=== PATIENT | male | born 1955 | race Caucasian/White ===

== ENCOUNTER → 2018-09-05 | Outpatient (CLI) | payer BC ==
--- NOTE | 2018-09-05 09:12 | FL ---
EXAMINATION TYPE: FL barium swallow DATE OF EXAM: 09/05/2018 COMPARISON: None HISTORY: Mass on vocal cords, dysphasia TECHNIQUE: A double air contrast UGI study is performed. FINDINGS: Esophagus dilates to normal caliber has normal contour to the gastroesophageal junction. Gastroesopha geal junction opens to normal caliber. No intraluminal or extramural defects are evident. There is some hesitancy emptying of the distal esophagus which eventually does completely empty. A fe w tertiary contractions are evident. The horizontal drinking position there is incomplete stripping of the esophageal bolus. IMPRESSIONS: 1. Presbyesophagus. In the horizontal drinking position there is secondary contractions preventing pr opulsion of the esophageal bolus into the stomach. 2. Some hesitancy in the upright position emptying the distal esophagus during the exam. No stenosis is evident.
--- NOTE | 2018-09-05 10:12 | XR ---
EXAMINATION TYPE: XR chest 2V DATE OF EXAM: 09/05/2018 COMPARISON: Prior chest x-ray 04/14/2009 HISTORY: Dysphagia TECHNIQUE: Frontal and lateral views of the chest are obtained. FINDINGS: Patient is rotated towards the left, there may be spinal curvature. Aorta is dense. There is no focal air space opacity, pleural effusion, or pneumothorax seen. The cardiac silhouette size i s within normal limits. The osseous structures are intact. IMPRESSION: No acute cardiopulmonary process.
--- NOTE | 2018-09-05 11:00 | CT ---
EXAMINATION TYPE: CT soft tissue neck w con DATE OF EXAM: 09/05/2018 COMPARISON: None HISTORY: Epiglottic mass CT DLP: 744 mGycm CONTRAST: Patient injected with 100 mL of Isovue 300. TECHNIQUE: Axial images at 3 mm thick sections. Reconstructed images in the coronal plane and sagitt al plane are reviewed. FINDINGS: Limited CT sections are obtained the lung apices. The lung apices appear clear. CT neck: Beam hardening artifact from dental amalgam at the level of the mandible is present. The tor us tubarius and fossa of Rosenmuller are normal. 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 Paranasal sinuses an d mastoid air cells are clear. Parotid glands appear normal and symmetrical. Submandibular glands, are normal. Parapharyngeal spac es are normal. No suspicious adenopathy is evident. There is a 1.4 x 1.0 cm mass within the left posterior epiglottic region. Findings are suspicious for neoplasm. Vocal cord level appear symmetrical. False cords appear symmetrical. Vocal cords are in close approxi mation at the time of this examination causing some limitation. Consider a small abnormality along th e right vocal cord. Series 5 image 49 Thyroid as visualized is normal. Pneumatocele is in the anterior left upper lobe. Facet degenerative changes are present throughout the cervical spine. There is loss of disc height th rough the lower cervical spine. Some posterior endplate spurring is present C6-7. IMPRESSIONS: 1. 1.4 x 1.0 cm mass posterior left epiglottis. 2. Possible small mass incompletely delineated on the right vocal cord. 3. No suspicious adenopathy.
== END | disposition home or self-care (01) ==
LOC: RADCTMAIN 06:58
PROVIDERS: ATTEND Otolaryngology
DX: K22.8 Other specified diseases of esophagus (principal); R05 Cough; J38.7 Other diseases of larynx
CPT/HCPCS: 74220; 71046; 70491; Q9967

== ENCOUNTER → 2018-09-05 | Outpatient (CLI) | payer BC | END | disposition home or self-care (01) | LOC: RADUSWWP 06:57 | PROVIDERS: ATTEND Otolaryngology | DX: Z53.9 Procedure and treatment not carried out, unspecified reason (principal) ==

== ENCOUNTER → 2019-11-22 | Outpatient (CLI) | payer BC ==
--- NOTE | 2019-11-22 09:53 | CT ---
EXAMINATION TYPE: CT neck chest w con DATE OF EXAM: 11/22/2019 COMPARISON: CT neck September 05, 2018 HISTORY: Follow up to throat CA, dysphagia, radiation treatment for [address] DLP: 1128.5 mGycm. Automated Exposure Control for Dose Reduction was Utilized. TECHNIQUE: CT scan of the 9010 thorax are performed following with IV Contrast, patient injected wit h 100 mL of Isovue 300. FINDINGS: Neck: Airway: Better visualization of normal-appearing epiglottis on current study, suspect interval succes sful radiation treatment of prior mass or neoplasm. No residual mass identified at this level on curr ent study near axial image 60. Symmetric slightly more prominent thickening of the aryepiglottic fold s may reflect posttreatment change. There are similar symmetric ill-defined fluid and soft tissue ful lness of the piriform sinuses presumed posttreatment change given symmetric appearance. Parotid/submandibular glands: No gross abnormality seen. Carotid/Vascular Structures: Ceoq-bj-[id number] calcified plaque left greater than right carotid bulbs without significant stenosis. Codominant vertebrobasilar system. Osseous Structures: Dextroconvex scoliotic curvature. Straightening of cervical spine with moderate d isc space narrowing C6-C7 level and posterior spur disc complex redemonstrated. Other: Tiny mucous retention cysts or polyps in the inferior left maxillary sinus. Nasal septum devia christi to right of midline. No new greater than 1 cm neck adenopathy identified bilaterally. Chest: LUNGS: The lungs are grossly clear, there is no concerning parenchymal mass or nodule identified. T here is no pleural effusion or pneumothorax seen. There is no right eccentric 6 x 4 mm nodule axial i mage 16 and corresponding coronal image 42 series 8 corresponding to sagittal image 39 series 9. MEDIASTINUM: There are no greater than 1 cm hilar or mediastinal lymph nodes. No pericardial effusi on is seen. Moderate to severe three-vessel coronary artery calcification is present which is noted marked underlying coronary artery disease. There is cardiomegaly with moderate biatrial and biventric ular dilatation. Main pulmonary artery measures 3.2 cm diameter on image 31, CT findings consistent w ith underlying pulmonary hypertension.. Adjacent ascending aorta measures up to 4.0 cm axial image 31 . OTHER: Moderate multilevel anterior and lateral spurring in the spine. IMPRESSION: 1. Positive treatment response with nonvisualized epiglottis mass or neoplasm just left of midline. S uspected posttreatment change at this level as detailed above. No new suspicious mass or adenopathy i dentified. No acute pulmonary process is evident. There is however no right-sided 6 x 4 right trachea l nodule, not typical dependent location for retained secretions. Consider direct visualization.
== END | disposition home or self-care (01) ==
LOC: RADCTMAIN 08:05
PROVIDERS: ATTEND Otolaryngology
DX: R04.2 Hemoptysis (principal)
CPT/HCPCS: 70491; 71260; Q9967

== ENCOUNTER → 2021-02-20 | Outpatient (CLI) | payer BC, MEDICARE ==
--- NOTE | 2021-02-21 04:09 | MR ---
EXAMINATION TYPE: MR hip RT wo/w con DATE OF EXAM: 02/20/2021 COMPARISON: HISTORY: Right hip pain and limited movement for 6 months. Last COR & AX are VINITA. CONTRAST: Standard multiplanar, multisequence MRI departmental protocol images were obtained without contrast a nd with 8 mL intravenous Gadavist gadolinium contrast. There is metal artifact from left hip surgery. The bony pelvis appears intact. There is abnormal incr eased signal on the STIR images in the superior aspect of the right femoral head. There is also mild increased signal in the right acetabulum. There is severe narrowing of the right hip joint space. The re is no evidence of free fluid in the pelvis. Bladder distends smoothly. There is a mild right-sided hip joint effusion. The contrast images show no pathologic enhancement. 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 No significant collapse of the articular surface. Hip joint effusion.
== END | disposition home or self-care (01) ==
LOC: RADMRIMAIN 15:18
PROVIDERS: ATTEND Orthopaedic Surgery Adult Reconstructive Orthopaedic Surgery
DX: M25.551 Pain in right hip (principal)
CPT/HCPCS: 73723; A9585

== ENCOUNTER 2021-03-08 22:08 | Observation (INO) | payer MEDICARE ==
--- NOTE | 2021-03-08 23:32 | ED ---
SOB HPI - General Chief Complaint: Shortness of Breath Stated Complaint: Chest Pain, Shortness of Breath Time Seen by Provider: 03/08/21 23:09 Source: patient, EMS Mode of arrival: EMS Limitations: no limitations - History of Present Illness Initial Comments: This patient is a 65-year-old man who presents to be evaluated for exertional dyspnea. Patient states he started having symptoms about 3 days ago but it was very mild. Today things became severe. He states that if he walks over 10 feet he feels unable to catch his breath at all even with using his home oxygen. He is on home oxygen on an as-needed basis. Patient has history of diagnosis of laryngeal cancer in 2019. He had excision then but was found to have recurrence to his trachea in 2019. He had a tracheal resection and then there was found to be spread to the bronchi. The patient gets his cancer treatment through the [facility]. In addition patient has a cough but states that this is chronic. He has thin yellow sputum that he states is unchanged. There has been no chest pain. He has not noted fever or chills. No change in urination or bowel movements. No leg pain or swelling. MD Complaint: shortness of breath Onset/Timin -: days(s) Severity scale (1-10): 0 Consistency: constant Improves With: oxygen Worsens With: exertion Known History Of: other Associated Symptoms: cough, sputum production Treatments Prior to Arrival: oxygen - Related Data Home Oxygen Therapy: Yes (PRN) Home Medications Medication Instructions Recorded Confirmed Atorvastatin [Lipitor] 40 mg PO HS 09/14/13 03/09/21 Ascorbic Acid [Vitamin C] 1,000 mg PO DAILY 03/09/21 03/09/21 Elderberry Fruit and Flower [Black 1 cap PO DAILY 03/09/21 03/09/21 Elderberry 575 mg Cap] Fluconazole 200 mg PO DAILY 03/09/21 03/09/21 Insulin Glargine,Hum.rec.anlog 28 unit SQ DAILY 03/09/21 03/09/21 [Lantus Solostar Pen] Latanoprost/Pf [Latanoprost 0.005% 1 drop BOTH EYES HS 03/09/21 03/09/21 Eye Drop] Levothyroxine Sodium [Synthroid] 137 mcg PO DAILY 03/09/21 03/09/21 Metoprolol Succinate (ER) [Toprol 100 mg PO DAILY 03/09/21 03/09/21 XL] Multivitamins, Thera [Multivitamin 1 tab PO DAILY 03/09/21 03/09/21 (formulary)] Sulfamethox-Tmp 800-160Mg [Bactrim 1 tab PO BID 03/09/21 03/09/21 DS 800-160 mg] Zinc 50 mg PO DAILY 03/09/21 03/09/21 amLODIPine [Norvasc] 10 mg PO HS 03/09/21 03/09/21 Previous Rx's Medication Instructions Recorded Benzocaine/Menthol Lozeng [Cepacol 1 each MUCOUS MEM Q4HR PRN #20 03/10/21 lozenge] lozenge Budesonide/Formoterol Fumarate 1 puff IH BID 30 Days #10.2 gm 03/10/21 [Symbicort 160-4.5 Mcg Inhaler] Cefuroxime Axetil [Ceftin] 500 mg PO BID 4 Days #8 tab 03/10/21 Ipratropium-Albuterol Nebulize 3 ml INHALATION RT-Q4H PRN ml 03/10/21 [Duoneb 0.5 mg-3 mg/3 ml Soln] Ipratropium-Albuterol Nebulize 3 ml INHALATION RT-QID 30 Days #90 03/10/21 [Duoneb 0.5 mg-3 mg/3 ml Soln] ml Pantoprazole [Protonix] 40 mg PO AC-BRKFST 30 Days #30 tab 03/10/21 predniSONE 10 mg PO DIRECTED #30 tab 03/10/21 Allergies Allergy/AdvReac Type Severity Reaction Status Date / Time No Known Allergies Allergy Verified 03/09/21 12:14 Review of Systems ROS Statement: Those systems with pertinent positive or pertinent negative responses have been documented in the HPI. ROS Other: All systems not noted in ROS Statement are negative. Constitutional: Denies: fever, chills, weakness Respiratory: Reports: cough, wheezes. Denies: dyspnea, hemoptysis, stridor Cardiovascular: Reports: as per HPI, dyspnea on exertion. Denies: chest pain, palpitations, orthopnea, edema, syncope Gastrointestinal: Denies: abdominal pain, vomiting, diarrhea Genitourinary: Denies: dysuria, hematuria Musculoskeletal: Denies: back pain Skin: Denies: rash Neurological: Denies: headache, weakness Past Medical History Past Medical History: Cancer, GERD/Reflux, Hypertension, Sleep Apnea/CPAP/BIPAP Additional Past Medical History / Comment(s): edema-both feet, trachial cancer, bronchial cancer History of Any Multi-Drug Resistant Organisms: None Reported Past Surgical History: Orthopedic Surgery Additional Past Surgical History / Comment(s): arthroscopic-dillon knees, rt shoulder, nasal/sinus surgery, trachial removal and insertion of a "t-tube" trac h. Past Anesthesia/Blood Transfusion Reactions: No Reported Reaction Past Psychological History: No Psychological Hx Reported Smoking Status: Former smoker Past Alcohol Use History: Occasional Past Drug Use History: None Reported - Past Family History Sister(s) Family Medical History: Cancer General Exam Limitations: no limitations General appearance: alert, in no apparent distress Head exam: Present: atraumatic, normocephalic Eye exam: Present: normal appearance. Absent: scleral icterus, conjunctival injection ENT exam: Present: normal oropharynx Neck exam: Present: other (The patient has a tracheostomy which is currently capped. There is some erythema surrounding the tracheostomy which appears to be postradiation change. Small amount of fibrinous exudate.) Respiratory exam: Present: wheezes, stridor. Absent: respiratory distress, rales, rhonchi, accessory muscle use, decreased breath sounds, prolonged expiratory Cardiovascular Exam: Present: regular rate, normal rhythm, normal heart sounds. Absent: systolic murmur, diastolic murmur, rubs, gallop GI/Abdominal exam: Present: soft. Absent: distended, tenderness, guarding, rebound, rigid, mass Extremities exam: Present: normal inspection, normal capillary refill. Absent: pedal edema, calf tenderness Back exam: Present: normal inspection Neurological exam: Present: alert Skin exam: Present: warm, dry, intact, normal color. Absent: rash Course Vital Signs 03/08/21 03/08/21 03/09/21 22:11 22:23 01:51 Temperature 99.1 F Pulse Rate 101 H 88 Respiratory 20 20 Rate Blood Pressure 140/107 O2 Sat by Pulse 98 Oximetry 03/09/21 03/09/21 03/09/21 02:09 02:57 05:47 Temperature 98.3 F Pulse Rate 88 90 83 Respiratory 22 20 Rate Blood Pressure 150/85 137/79 O2 Sat by Pulse 96 99 Oximetry Medical Decision Making - Lab Data Result diagrams: 03/10/21 05:19 03/10/21 05:19 Lab Results 03/09/21 03/09/21 03/09/21 Range/Units 00:16 00:16 00:16 WBC 10.5 (3.8-10.6) k/uL RBC 4.51 (4.30-5.90) m/uL Hgb 13.7 (13.0-17.5) gm/dL Hct 41.4 (39.0-53.0) % MCV 91.7 (80.0-100.0) fL MCH 30.4 (25.0-35.0) pg MCHC 33.2 (31.0-37.0) g/dL RDW 17.7 H (11.5-15.5) % Plt Count 190 (150-450) k/uL MPV 6.7 Neutrophils % 90 % Lymphocytes % 3 % Monocytes % 6 % Eosinophils % 0 % Basophils % 0 % Neutrophils # 9.4 H (1.3-7.7) k/uL Lymphocytes # 0.3 L (1.0-4.8) k/uL Monocytes # 0.6 (0-1.0) k/uL Eosinophils # 0.0 (0-0.7) k/uL Basophils # 0.0 (0-0.2) k/uL Poikilocytosis Slight Anisocytosis Slight PT 10.7 (9.0-12.0) sec INR 1.0 (<1.2) APTT 20.4 L (22.0-30.0) sec D-Dimer 1.06 H (<0.60) mg/L FEU Sodium 136 L (137-145) mmol/L Potassium 4.4 (3.5-5.1) mmol/L Chloride 103 (98-107) mmol/L Carbon Dioxide 21 L (22-30) mmol/L Anion Gap 12 mmol/L BUN 18 (9-20) mg/dL Creatinine 0.76 (0.66-1.25) mg/dL Est GFR (CKD-EPI)AfAm >90 (>60 ml/min/1.73 sqM) Est GFR (CKD-EPI)NonAf >90 (>60 ml/min/1.73 sqM) Glucose 206 H (74-99) mg/dL Plasma Lactic Acid Billy (0.7-2.0) mmol/L Calcium 9.6 (8.4-10.2) mg/dL Total Bilirubin 0.7 (0.2-1.3) mg/dL AST 25 (17-59) U/L ALT 17 (4-49) U/L Alkaline Phosphatase 105 (38-126) U/L Troponin I (0.000-0.034) ng/mL NT-Pro-B Natriuret Pep pg/mL Total Protein 6.6 (6.3-8.2) g/dL Albumin 3.9 (3.5-5.0) g/dL Coronavirus (PCR) (Not Detectd) 03/09/21 03/09/21 03/09/21 Range/Units 00:16 00:16 00:16 WBC (3.8-10.6) k/uL RBC (4.30-5.90) m/uL Hgb (13.0-17.5) gm/dL Hct (39.0-53.0) % MCV (80.0-100.0) fL MCH (25.0-35.0) pg MCHC (31.0-37.0) g/dL RDW (11.5-15.5) % Plt Count (150-450) k/uL MPV Neutrophils % % Lymphocytes % % Monocytes % % Eosinophils % % Basophils % % Neutrophils # (1.3-7.7) k/uL Lymphocytes # (1.0-4.8) k/uL Monocytes # (0-1.0) k/uL Eosinophils # (0-0.7) k/uL Basophils # (0-0.2) k/uL Poikilocytosis Anisocytosis PT (9.0-12.0) sec INR (<1.2) APTT (22.0-30.0) sec D-Dimer (<0.60) mg/L FEU Sodium (137-145) mmol/L Potassium (3.5-5.1) mmol/L Chloride (98-107) mmol/L Carbon Dioxide (22-30) mmol/L Anion Gap mmol/L BUN (9-20) mg/dL Creatinine (0.66-1.25) mg/dL Est GFR (CKD-EPI)AfAm (>60 ml/min/1.73 sqM) Est GFR (CKD-EPI)NonAf (>60 ml/min/1.73 sqM) Glucose (74-99) mg/dL Plasma Lactic Acid Billy 1.2 (0.7-2.0) mmol/L Calcium (8.4-10.2) mg/dL Total Bilirubin (0.2-1.3) mg/dL AST (17-59) U/L ALT (4-49) U/L Alkaline Phosphatase (38-126) U/L Troponin I 0.014 (0.000-0.034) ng/mL NT-Pro-B Natriuret Pep 579 pg/mL Total Protein (6.3-8.2) g/dL Albumin (3.5-5.0) g/dL Coronavirus (PCR) (Not Detectd) 03/09/21 Range/Units 00:16 WBC (3.8-10.6) k/uL RBC (4.30-5.90) m/uL Hgb (13.0-17.5) gm/dL Hct (39.0-53.0) % MCV (80.0-100.0) fL MCH (25.0-35.0) pg MCHC (31.0-37.0) g/dL RDW (11.5-15.5) % Plt Count (150-450) k/uL MPV Neutrophils % % Lymphocytes % % Monocytes % % Eosinophils % % Basophils % % Neutrophils # (1.3-7.7) k/uL Lymphocytes # (1.0-4.8) k/uL Monocytes # (0-1.0) k/uL Eosinophils # (0-0.7) k/uL Basophils # (0-0.2) k/uL Poikilocytosis Anisocytosis PT (9.0-12.0) sec INR (<1.2) APTT (22.0-30.0) sec D-Dimer (<0.60) mg/L FEU Sodium (137-145) mmol/L Potassium (3.5-5.1) mmol/L Chloride (98-107) mmol/L Carbon Dioxide (22-30) mmol/L Anion Gap mmol/L BUN (9-20) mg/dL Creatinine (0.66-1.25) mg/dL Est GFR (CKD-EPI)AfAm (>60 ml/min/1.73 sqM) Est GFR (CKD-EPI)NonAf (>60 ml/min/1.73 sqM) Glucose (74-99) mg/dL Plasma Lactic Acid Billy (0.7-2.0) mmol/L Calcium (8.4-10.2) mg/dL Total Bilirubin (0.2-1.3) mg/dL AST (17-59) U/L ALT (4-49) U/L Alkaline Phosphatase (38-126) U/L Troponin I (0.000-0.034) ng/mL NT-Pro-B Natriuret Pep pg/mL Total Protein (6.3-8.2) g/dL Albumin (3.5-5.0) g/dL Coronavirus (PCR) Not Detected (Not Detectd) - EKG Data -: EKG Interpreted by Me EKG shows normal: sinus rhythm, axis (Normal), intervals (Normal), QRS complexes (Normal), ST-T waves (Normal) Rate: normal (Rate 86 bpm) Disposition Clinical Impression: Tracheobronchitis, COPD with exacerbation Disposition: ADMITTED IP TO THIS [facility] Condition: Stable Is patient prescribed a controlled substance at d/c from ED?: No
--- NOTE | 2021-03-09 00:10 | XR ---
EXAMINATION TYPE: XR chest 2V DATE OF EXAM: 03/08/2021 COMPARISON: 09/05/2018 HISTORY: Difficulty breathing TECHNIQUE: FINDINGS: There is no heart failure or confluent pneumonic infiltrate. There are sternal wires. Costo phrenic angles are clear. There are chest leads. Bony thorax is intact. IMPRESSION: No active cardiopulmonary disease. Normal heart. No change.
[2021-03-09 00:39] LABS: Anisocytosis Slight; Basophils % (A) 0 %; Eosinophils % (A) 0 %; HCT 41.4 % (39.0-53.0); HGB 13.7 gm/dL (13.0-17.5); Lymphocytes # (A) 0.3 k/uL (1.0-4.8); Lymphocytes % (A) 3 %; MCH 30.4 pg (25.0-35.0); MCHC 33.2 g/dL (31.0-37.0); MCV 91.7 fL (80.0-100.0); Mean Platelet Volume 6.7; Monocytes # (A) 0.6 k/uL (0-1.0); Monocytes % (A) 6 %; Neutrophils # (A) 9.4 k/uL (1.3-7.7); Neutrophils % (A) 90 %; Platelet Count 190 k/uL (150-450); Poikilocytosis Slight; RBC 4.51 m/uL (4.30-5.90); RDW 17.7 % (11.5-15.5); WBC 10.5 k/uL (3.8-10.6)
[2021-03-09 00:49] LABS: ALT 17 U/L (4-49); AST 25 U/L (17-59); African American GFR (CKD) >90 (>60 ml/min/1.73 sqM); Albumin 3.9 g/dL (3.5-5.0); Alkaline Phosphatase 105 U/L (38-126); Anion Gap 12 mmol/L; Blood Urea Nitrogen 18 mg/dL (9-20); Calcium 9.6 mg/dL (8.4-10.2); Carbon Dioxide 21 mmol/L (22-30); Chloride 103 mmol/L (98-107); Glucose 206 mg/dL (74-99); Non-African American GFR(CKD) >90 (>60 ml/min/1.73 sqM); Potassium 4.4 mmol/L (3.5-5.1); Sodium 136 mmol/L (137-145); Total Bilirubin 0.7 mg/dL (0.2-1.3); Total Protein 6.6 g/dL (6.3-8.2)
[2021-03-09 00:58] LABS: Prothrombin Time 10.7 sec (9.0-12.0)
[2021-03-09 01:08] LABS: Partial Thromboplastin Time 20.4 sec (22.0-30.0)
[2021-03-09] MEDS ORDERED: IPRATROPIUM-ALBUTEROL 3 ML NEB INHALATION STA (01:34)
--- NOTE | 2021-03-09 02:40 | CT ---
EXAMINATION TYPE: CT chest angio for PE DATE OF EXAM: 03/09/2021 COMPARISON: 11/22/2019 HISTORY: elevated d-dimer CT DLP: 361.5 mGycm Automated exposure control for dose reduction was used. CONTRAST: Performed with IV Contrast, patient injected with 50 mL of Isovue 370. Images obtained from the thoracic inlet to the diaphragm with IV contrast. There are Three-D postproc essed images. The contrast was Isovue 50 mL. FINDINGS: There is tracheostomy tube noted. There is irregular contour of the wall of the lower trachea and the proximal mainstem bronchi. There are small linear density in the medial left lower lobe. There is no pleural effusion. There is no evidence of a pulmonary mass. There is no adrenal mass. There is probably a small calcified gallst ones. Heart size is normal. There is no pericardial effusion. There is normal contrast opacification of the pulmonary arteries. There are no filling defects. There is mild aneurysm of the ascending aorta whic h measures 4 cm. There is no dissection. The thoracic spine is intact. There is no compression fracture. Sternum is intact. There are sternal wires. IMPRESSION: No evidence of pulmonary embolism. Irregular trachea with tracheostomy tube. Irregular wall thickening of the lower trachea and the pro ximal mainstem bronchi could relate to tumor or inflammation. This appears significantly increased co mpared to the CT SCAN of 11/22/2019. 4 cm thoracic aortic aneurysm without change.
[2021-03-09] MEDS ORDERED: IPRATROPIUM-ALBUTEROL 3 ML NEB INHALATION PRN (02:55)
[2021-03-09] MEDS ORDERED: IBUPROFEN 600 MG TAB PO STA (06:02)
[2021-03-09] MEDS: SODIUM CHLORIDE 0.9% 1,000 ML IV SCH ×2 (07:06→14:13)
[2021-03-09] MEDS ORDERED: predniSONE 20 MG TAB PO SCH (09:00)
[2021-03-09] MEDS: ALBUTEROL NEBULIZED 2.5 MG/3 ML INHALATION SCH ×2 (09:13→12:07)
[2021-03-09] MEDS ORDERED: ALPRAZolam 0.25 MG TAB PO PRN (13:15)
[2021-03-09] MEDS: methylPREDNISolone SOD SUCCI 125 MG/2 ML VIAL IV SCH ×2 (13:59→17:02)
[2021-03-09] MEDS: FLUCONAZOLE 100 MG TAB PO SCH (14:01)
[2021-03-09] MEDS: PANTOPRAZOLE 40 MG TABLET PO SCH (14:01)
[2021-03-09] MEDS: METOPROLOL SUCCINATE (ER) 100 MG TAB.ER.24H PO SCH (14:02)
[2021-03-09] MEDS: LEVOTHYROXINE 137 MCG TAB PO SCH ×2 (14:02→14:03)
--- NOTE | 2021-03-09 14:22 | HP ---
HISTORY AND PHYSICAL DATE OF SERVICE: 03/09/2021. CHIEF COMPLAINT: Shortness of breath. HISTORY OF PRESENT ILLNESS: This 65-year-old gentleman with a past history of GERD, hypertension, sleep apnea, history of skin cancer, history of bronchial cancer, [facility], chemo, history of hernia, history of DJD being followed by Dr. San in the outpatient setting complaining of shortness of breath. The patient usually takes a breathing treatment to get relief. Yesterday, the patient did not have any relief. The patient came to [facility] and admitted to the hospital further evaluation and treatment. The chest x-ray showed some COPD. CT angio chest was also done to rule out pulmonary embolism. The patient had diffuse thickening and abnormalities of the lower lobes. Otherwise, there is no history of any fever, rigor or chills at this time. PAST MEDICAL HISTORY: History of GERD, hypertension, sleep apnea, history of tracheobronchial cancer on chemo, history of DJD. MEDICATIONS: Medications prior to admission include: Latanoprost, Norvasc, multivitamins, zinc, Elderberry, ascorbic acid, Bactrim DS, Synthroid. Doses and other medications reviewed. ALLERGIES: None. FAMILY HISTORY: No history of cancer in the family. SOCIAL HISTORY: Previous history of smoking. No history of alcohol. REVIEW OF SYSTEMS: ENT: No diminished vision. No diminished hearing. CARDIOVASCULAR system as mentioned earlier. RESPIRATORY: As mentioned earlier. GI: As mentioned earlier. no dysuria. NERVOUS SYSTEM: No numbness or weakness. ALLERGY/IMMUNOLOGY: No asthma or hayfever. MUSCULOSKELETAL: As mentioned earlier. HEMATOLOGY/ONCOLOGY: No history of anemia. ENDOCRINE: No history of diabetes mellitus or hypothyroidism. CONSTITUTIONAL: As mentioned earlier. DERMATOLOGY: Negative. RHEUMATOLOGY: Negative. PSYCHIATRIC: As mentioned earlier. PHYSICAL EXAMINATION: Alert and oriented times three. Pulse 71, blood pressure 125/76, respirations 16, temperature 97.6, pulse ox 98% on 4 L. HEENT: Conjunctivae normal. NECK: No JVD. CARDIOVASCULAR: S1, S2 muffled. RESPIRATORY: Breath sounds diminished in the bases. A few scattered rhonchi and crackles. Expiratory wheezing also present. ABDOMEN: Soft, nontender. No mass palpable. LEGS: No edema. No swelling. NERVOUS SYSTEM: Higher functions as mentioned earlier. Moves all 4 limbs. No focal motor or sensory deficits. LYMPHATICS: No lymph nodes palpable in the neck, axillae or groin. SKIN: No ulcer, no rash and no bleeding. LABS: Chest x-ray and CT angio personally reviewed. WBC 10.7, D-dimer 1.64 and sodium is 136. Covid 19 is negative. ASSESSMENT: 1. Chronic obstructive pulmonary disease acute exacerbation with acute purulent tracheobronchitis with failure of outpatient treatment with acute hypoxic respiratory failure. 2. Hyponatremia. 3. 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 4. History of gastroesophageal reflux disease. 5. Hypertension. 6. Sleep apnea. 7. History of tracheobronchial cancer being followed at [facility]. 8. History of hernia. 9. History of degenerative joint disease. 10.Remote history of nicotine dependence. 11.FULL CODE. RECOMMENDATIONS AND DISCUSSION: This 65-year-old gentleman who presented with multiple complex medications. We will monitor the patient closely, continue the current medications, symptomatic treatment. We will initiate broad-spectrum IV antibiotics. Otherwise I would also recommend intensive bronchodilators. Pulmonary consultation. Home medications will be continued. DVT prophylaxis. Otherwise, I would also recommend intravenous steroids and monitor Accu-Cheks also. See orders for details. Prognosis is extremely guarded because of multiple complex medical issues. Further recommendations to follow. A copy of this dictation is being forwarded to Dr. San who is the primary physician. MANDI / GISSEL: [id number] /
[2021-03-09] MEDS: INSULIN DETEMIR (LEVEMIR) 100 UNIT/ML SYR SQ SCH (14:28)
[2021-03-09] MEDS: FORMOTEROL FUMARATE 20 MCG/2 ML NEBU INHALATION SCH ×2 (15:46→21:00)
[2021-03-09] MEDS: IPRATROPIUM-ALBUTEROL 3 ML NEB INHALATION SCH ×2 (15:46→21:00)
[2021-03-09] MEDS: BUDESONIDE 1 MG/2 ML NEBU INHALATION SCH ×2 (15:46→21:00)
[2021-03-09 16:39] LABS: Glucose,Whole Blood 216 mg/dL (75-99)
--- NOTE | 2021-03-09 16:44 | P.CNPUL ---
History of Present Illness Consult date: 03/09/21 Reason for consult: dyspnea History of present illness: 65-year-old male patient presented to the hospital because of exertional dyspnea progressively getting worse over the past several days. His symptoms progressively got worse and for that reason he came into the ED. Unable to catch his breath and he was using his home O2. He is known to have laryngeal cancer in 2019. This is a very interesting and in summary, the patient was initially diagnosed having what seems to be of a papillomatosis/cancer of the epiglottis/vocal cord. At that point, the patient was treated with radiation therapy to [facility] of 7 sessions. Following that, the patient was found to have extensive involvement of the trachea. The patient went [facility] and the patient underwent tracheal resection which was an extensive surgery. He underwent tracheal reconstruction with a muscle flap and the patient has a plastic tracheostomy tube extending from his neck down to the mid chest. Following that, the patient was started on immunotherapy and the patient was given Keytruda and he has already received 2 sessions of immunothe rapy. He is being followed up by . Most recently, he was found to have further endobronchial extension of the tumor into the airways when he was being planned to undergo further resection. Meanwhile, the patient gets admitted to the hospital. The patient denies having any fever. No significant sputum production. Currently is on room air oxygen. He has bronchospastic and wheezy. Is a nonsmoker. He has not had a significant history of smoking in the past. No reported history of COPD. He was told that bronchodilators in general will not take his help his condition. No reported chest pain. No fever or chills. He came into the emergency department and the patient was initially found to have a temperature of 99.1. BP was slightly elevated 140 05/23/2006. Pulse ox was 98% on room air oxygen. White cell count was at 10.5 with a hemoglobin of 13.7 and a platelet count of 190. Normal renal function with a creatinine of 0.7, sodium was at 136, normal coagulation profile, d-dimer was at 1.06, glucose was at 206, calcium was at 9.6, the patient's troponin was at 0.01, proBNP level was 579, lactic acid level was at 1.2 and the patient tested negative for COVID 19 by PCR. The EKG showed a normal sinus rhythm. The chest x-ray showed no acute abnormalities. CT of the chest was also done and it showed no evidence of any pulmonary embolism. The patient has a tracheostomy tube in place. No evidence of any pleural effusion. Nevertheless, based on my review, CAT scan of the chest is markedly abnormal. There is an extensive endobronchial irregularities or abnormalities and tumor growth in the main maximo and also similar abnormalities are noted in the proximal mainstem bronchi bilaterally causing anatomic obstruction. No evidence of any pneumonia. Note the 70 collap se lung. No evidence of any pleural effusion. No significant mediastinal lymphadenopathy. There was found incidentally to have small calcified gallstones. The patient is currently on room air of oxygen pulse ox 97%. Hemodynamically stable. Blood pressure is also improved. Review of Systems Constitutional: Reports as per HPI Eyes: denies as per HPI, denies blurred vision, denies bulging eye, denies decreased vision, denies diplopia, denies discharge, denies dry eye, denies irritation, denies itching, denies pain, denies photophobia, denies loss of peripheral vision, denies loss of vision, denies tunnel vision/blind spots Ears: deny: decreased hearing, ear discharge, earache, tinnitus Ears, nose, mouth and throat: Reports as per HPI Breasts: absent: as per HPI, gynecomastia Cardiovascular: Reports dyspnea on exertion Respiratory: Reports cough, Reports dyspnea Gastrointestinal: Reports as per HPI Genitourinary: Reports as per HPI Musculoskeletal: Reports as per HPI Musculoskeletal: absent: ankle pain, ankle stiffness, ankle swelling, as per HPI, elbow pain, elbow stiffness, elbow swelling, foot pain, foot stiffness, foot swelling, hand pain, hand stiffness, hand swelling, hip pain, hip s tiffness, hip swelling, knee pain, knee stiffness, knee swelling, shoulder pain, shoulder stiffness, shoulder swelling, wrist pain, wrist stiffness, wrist swelling Integumentary: Reports as per HPI Neurological: Reports as per HPI Psychiatric: Reports as per HPI Endocrine: Reports as per HPI Hematologic/Lymphatic: Reports as per HPI Allergic/Immunologic: Reports as per HPI Past Medical History Past Medical History: Cancer (Laryngeal cancer), GERD/Reflux, Hypertension, Sleep Apnea/CPAP/BIPAP Additional Past Medical History / Comment(s): edema-both feet, trachial cancer, bronchial cancer 2019 going to [facility] for treatment with chemo, january 23 2021 pt tested positive at [facility], hernia to right side groin/abdomen History of Any Multi-Drug Resistant Organisms: None Reported Past Surgical History: Orthopedic Surgery Additional Past Surgical History / Comment(s): arthroscopic-dillon knees, rt shoulder, nasal/sinus surgery, trachial removal and insertion of a "t-tube" trach mar 2019 Past Anesthesia/Blood Transfusion Reactions: No Reported Reaction Past Psychological History: No Psychological Hx Reported Smoking Status: Former smoker Past Alcohol Use History: Occasional Past Drug Use History: None Reported - Past Family History Sister(s) Family Medical History: Cancer Medications and Allergies Home Medications Medication Instructions Recorded Confirmed Type Atorvastatin [Lipitor] 40 mg PO HS 09/14/13 03/09/21 History Ascorbic Acid [Vitamin C] 1,000 mg PO DAILY 03/09/21 03/09/21 History Elderberry Fruit and Flower [Black 1 cap PO DAILY 03/09/21 03/09/21 History Elderberry 575 mg Cap] Fluconazole 200 mg PO DAILY 03/09/21 03/09/21 History Insulin Glargine,Hum.rec.anlog 28 unit SQ DAILY 03/09/21 03/09/21 History [Lantus Solostar Pen] Latanoprost/Pf [Latanoprost 0.005% 1 drop BOTH EYES HS 03/09/21 03/09/21 History Eye Drop] Levothyroxine Sodium [Synthroid] 137 mcg PO DAILY 03/09/21 03/09/21 History Metoprolol Succinate (ER) [Toprol 100 mg PO DAILY 03/09/21 03/09/21 History Xl] Multivitamins, Thera [Multivitamin 1 tab PO DAILY 03/09/21 03/09/21 History (formulary)] Sulfamethox-Tmp 800-160Mg [Bactrim 1 tab PO BID 03/09/21 03/09/21 History DS 800-160 mg] Zinc 50 mg PO DAILY 03/09/21 03/09/21 History amLODIPine [Norvasc] 10 mg PO HS 03/09/21 03/09/21 History Allergies Allergy/AdvReac Type Severity Reaction Status Date / Time No Known Allergies Allergy Verified 03/09/21 12:14 Physical Exam Vitals: Vital Signs Temp Pulse Pulse Resp BP BP Pulse Ox 03/09/21 14:00 98.4 F 93 16 121/78 97 03/09/21 09:31 82 03/09/21 09:15 80 03/09/21 08:00 97.6 F 71 16 125/76 98 03/09/21 05:47 98.3 F 83 20 137/79 99 03/09/21 02:57 90 22 150/85 96 03/09/21 02:09 88 03/09/21 01:51 88 03/08/21 22:23 20 03/08/21 22:11 99.1 F 101 H 20 140/107 98 Intake and Output 03/09/21 03/09/21 03/09/21 06:59 14:59 22:59 Intake Total 472 Balance 472 Intake: Oral 472 Other: Weight 79.379 kg General appearance: alert, in no apparent distress, currently on 4 L nasal cannu la. Head exam: Present: atraumatic, normocephalic, normal inspection Eye exam: Present: normal appearance, EOMI Neck exam: Present: normal inspection. The patient is a tracheostomy in place. Respiratory exam: Absent: respiratory distress Extremities exam: Present: normal inspection, full ROM, tenderness, normal capillary refill. Absent: pedal edema, joint swelling, calf tenderness Neurological exam: Present: alert, oriented X3, CN II-XII intact. Absent: motor sensory deficit Psychiatric exam: Present: normal affect, normal mood Skin exam: Present: warm, dry, intact, normal color. Absent: rash Results - Laboratory Findings CBC and BMP: 03/09/21 00:16 03/09/21 00:16 PT/INR, D-dimer PT 10.7 sec (9.0-12.0) 03/09/21 00:16 INR 1.0 (<1.2) 03/09/21 00:16 D-Dimer 1.06 mg/L FEU (<0.60) H 03/09/21 00:16 Abnormal lab findings: Abnormal Labs 03/09/21 03/09/21 03/09/21 00:16 00:16 00:16 RDW 17.7 H Neutrophils # 9.4 H Lymphocytes # 0.3 L APTT 20.4 L D-Dimer 1.06 H Sodium 136 L Carbon Dioxide 21 L Glucose 206 H - Diagnostic Findings Chest x-ray: image reviewed CT scan - chest: image reviewed Assessment and Plan Plan: 1 shortness of breath, multifactorial. 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 All of his investigation was not at [facility]. The patient undergone surgical resection and construction and therefore now the patient has endobronchial growth causing an anatomic obstruction the level of the trachea distally, maximo and bilateral mainstem bronchi. As such, the patient is becoming progressively more short of breath. Computed tomography scan of the chest shows no evidence of any pulmonary embolism. No evidence of pneumonias. He is bronchospastic and wheezy which could be related to narrowing of the airways rather than a clear underlying obstructive airway disease. The patient is currently on room air oxygen. His tracheostomy is patent at this point in time. 2 acute on chronic worsening shortness of breath 3 history of laryngeal/tracheal tumor. Initially the patient started off with radiation therapy to his cords and epiglottis and subsequently the tumor extended into his trachea. The patient has undergone taken resection followed by immunotherapy with Keytruda. 4 hypothyroidism 5 diabetes mellitus 6 hypertension Plan Unfortunately not much can be offered to this patient. Breathing treatments and bronchodilators may not be of much value knowing that the patient obstruction is anatomic and he does not have any reversible smaller airway disease. This will be continued for now to give him the benefit of the doubt. He was also placed on steroids. He is on empiric antibiotic coverage. He needs to go back to [facility] for further investigation. He needs to have a bronchoscopy to his ENT physician for further evaluation and the assessment of his airway and he may need to undergo further debulking to open and improve the patency of the airway. Immunotherapy may be also value. He will contact his ENT services at [facility] to monitor. Unfortunately, our ability to help this patient is limited at this point in time. We'll continue to follow. He understands the current situation.
[2021-03-09] MEDS: INSULIN ASPART (NovoLOG) 100 UNIT/ML VIAL SQ SCH ×2 (17:02→21:53)
[2021-03-09] MEDS ORDERED: LATANOPROST 0.005% OPHTH DROPS 2.5 ML BTL BOTH EYES SCH (21:00)
[2021-03-09 21:15] LABS: Glucose,Whole Blood 215 mg/dL (75-99)
[2021-03-09] MEDS: HEPARIN SODIUM,PORCINE/PF 5,000 UNIT/0.5 ML SYRINGE SQ SCH (21:54)
[2021-03-09] MEDS ORDERED: VANCOMYCIN IV PER PHARMACY 1 EACH MISC MISCELLANE PRN (22:52)
[2021-03-09] MEDS ORDERED: VANCOMYCIN 1,500 MG in SODIUM CHLORIDE 0.9% 250 ML IVPB ONE (23:00)
[2021-03-10] MEDS: methylPREDNISolone SOD SUCCI 125 MG/2 ML VIAL IV SCH ×3 (00:09→12:22)
[2021-03-10] MEDS: LEVOTHYROXINE 137 MCG TAB PO SCH (05:07)
[2021-03-10 07:41] LABS: Glucose,Whole Blood 201 mg/dL (75-99)
[2021-03-10] MEDS: INSULIN DETEMIR (LEVEMIR) 100 UNIT/ML SYR SQ SCH (07:59)
[2021-03-10] MEDS: INSULIN ASPART (NovoLOG) 100 UNIT/ML VIAL SQ SCH ×2 (07:59→12:22)
[2021-03-10] MEDS: HEPARIN SODIUM,PORCINE/PF 5,000 UNIT/0.5 ML SYRINGE SQ SCH (08:01)
[2021-03-10] MEDS: FLUCONAZOLE 100 MG TAB PO SCH (08:01)
[2021-03-10] MEDS: PANTOPRAZOLE 40 MG TABLET PO SCH (08:01)
[2021-03-10] MEDS: METOPROLOL SUCCINATE (ER) 100 MG TAB.ER.24H PO SCH (08:01)
[2021-03-10] MEDS: BUDESONIDE 1 MG/2 ML NEBU INHALATION SCH (08:04)
[2021-03-10] MEDS: IPRATROPIUM-ALBUTEROL 3 ML NEB INHALATION SCH ×3 (08:04→16:56)
[2021-03-10] MEDS: FORMOTEROL FUMARATE 20 MCG/2 ML NEBU INHALATION SCH (08:04)
[2021-03-10 08:57] LABS: Basophils # (A) 0.01 X 10*3/uL (0.00-0.10); Basophils % (A) 0.1 %; Eosinophils # (A) 0 X 10*3/uL (0.04-0.35); Eosinophils % (A) 0 %; HCT 33.6 % (39.6-50.0); HGB 11.3 g/dL (13.0-17.0); Immature Grans, Automated 0.4 %; Lymphocytes # (A) 0.33 X 10*3/uL (0.90-5.00); Lymphocytes % (A) 3.3 %; MCHC 33.6 g/dL (32.0-37.0); MCV 89.1 fL (80.0-97.0); Mean Platelet Volume 9.8 fL (9.5-12.2); Monocytes # (A) 0.08 X 10*3/uL (0.20-1.00); Monocytes % (A) 0.8 %; NRBC Per 100 WBC 0 /100 WBCS (0.0-0.0); Neutrophils # (A) 9.65 X 10*3/uL (1.80-7.70); Neutrophils % (A) 95.4 %; Platelet Count 194 X 10*3/uL (140-440); RBC 3.77 X 10*6/uL (4.40-5.60); RDW 17.1 % (11.5-14.5); WBC 10.11 X 10*3/uL (4.50-10.00)
[2021-03-10] MEDS ORDERED: MULTIVITAMINS, THERA 1 EACH TAB PO SCH (09:00)
[2021-03-10] MEDS ORDERED: ZINC SULFATE 220 MG CAP PO SCH (09:00)
[2021-03-10 09:19] LABS: African American GFR (CKD) 108.6 (60.0-200.0); BUN/Creat Ratio 22.38 Ratio (12.00-20.00); Blood Urea Nitrogen 17.9 mg/dL (9.0-27.0); Calcium 9.6 mg/dL (8.7-10.3); Non-African American GFR(CKD) 93.7 (60.0-200.0); Potassium 4.7 mmol/L (3.5-5.5)
[2021-03-10 11:45] LABS: Glucose,Whole Blood 250 mg/dL (75-99)
[2021-03-10] MEDS ORDERED: VANCOMYCIN 1,500 MG in SODIUM CHLORIDE 0.9% 250 ML IVPB SCH (12:00)
[2021-03-10] MEDS ORDERED: BENZOCAINE/MENTHOL LOZENG 1 EACH LOZENGE MUCOUS MEM PRN (12:12)
[2021-03-10] MEDS ORDERED: IBUPROFEN 600 MG TAB PO STA (12:12)
[2021-03-10 16:10] VITALS: BP 109/68; PULSE 75; RESP 18; TEMP 98.2
--- NOTE | 2021-03-12 06:28 | P.DS ---
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 Patient will follow-up with Dr. San in the outpatient setting upon d ischarge. Patient has oncologist out of [facility] that he follows with. Recommend repeat labs in 2-3 days. Patient to continue with ceftin bid for the next few days to complete the course. Patient will also continue a prednisone taper on discharge. Total time taken is greater than 35 minutes. Hospital Course This is a 65 year old male who was recently admitted for worsening shortness of breath and is being closely monitored. Pulmonary evaluated the patient and patient to continue with oral abx in the form of Ceftin 500mg bid along with a prednisone taper on discharge. Patient also to follow at [facility] as scheduled. Continue breathing inhalational treatments and prescription provided. Currently no reports of chest pain, shortness of breath, or palpitations. Patient is afebrile. No reports of nausea or vomiting and patient is tolerating diet. Patient will be discharged home today. Physical Exam: Gen: This is a 65-year-old male, alert and oriented 3. HEENT: Head is atraumatic, normocephalic. Pupils equal, round. Sclerae is anicteric. NECK: Supple. No JVD. No lymphadenopathy. No thyromegaly. LUNGS: Diminished breath sounds bilaterally with no wheezing or rhonchi noted. No intercostal retractions. HEART: S1, S2 are muffled ABDOMEN: Soft. Bowel sounds are present. No masses. No tenderness. EXTREMITIES: No pedal edema. No calf tenderness. NEUROLOGICAL: Patient is awake, alert and oriented 3, no focal deficit noted Please refer to medication reconciliation sheet for a list of medications. Patient Condition at Discharge: Stable Plan - Discharge Summary New Discharge Prescriptions: New Cefuroxime Axetil [Ceftin] 500 mg PO BID 4 Days #8 tab Ipratropium-Albuterol Nebulize [Duoneb 0.5 mg-3 mg/3 ml Soln] 3 ml INHALATION RT-Q4H PRN ml PRN Reason: Shortness Of Breath Or Wheezing Pantoprazole [Protonix] 40 mg PO AC-BRKFST 30 Days #30 tab Benzocaine/Menthol Lozeng [Cepacol lozenge] 1 each MUCOUS MEM Q4HR PRN #20 lozenge PRN Reason: Cough Ipratropium-Albuterol Nebulize [Duoneb 0.5 mg-3 mg/3 ml Soln] 3 ml INHALATION RT-QID 30 Days #90 ml predniSONE 10 mg PO DIRECTED #30 tab Budesonide/Formoterol Fumarate [Symbicort 160-4.5 Mcg Inhaler] 1 puff IH BID 30 Days #10.2 gm Continue Atorvastatin [Lipitor] 40 mg PO HS Insulin Glargine,Hum.rec.anlog [Lantus Solostar Pen] 28 unit SQ DAILY Fluconazole 200 mg PO DAILY Elderberry Fruit and Flower [Black Elderberry 575 mg Cap] 1 cap PO DAILY Metoprolol Succinate (ER) [Toprol XL] 100 mg PO DAILY Sulfamethox-Tmp 800-160Mg [Bactrim DS 800-160 mg] 1 tab PO BID Levothyroxine Sodium [Synthroid] 137 mcg PO DAILY Multivitamins, Thera [Multivitamin (formulary)] 1 tab PO DAILY Latanoprost/Pf [Latanoprost 0.005% Eye Drop] 1 drop BOTH EYES HS amLODIPine [Norvasc] 10 mg PO HS Zinc 50 mg PO DAILY Ascorbic Acid [Vitamin C] 1,000 mg PO DAILY Discharge Medication List Atorvastatin [Lipitor] 40 mg PO HS 09/14/13 [History] Ascorbic Acid [Vitamin C] 1,000 mg PO DAILY 03/09/21 [History] Elderberry Fruit and Flower [Black Elderberry 575 mg Cap] 1 cap PO DAILY 03/09/21 [History] Fluconazole 200 mg PO DAILY 03/09/21 [History] Insulin Glargine,Hum.rec.anlog [Lantus Solostar Pen] 28 unit SQ DAILY 03/09/21 [History] Latanoprost/Pf [Latanoprost 0.005% Eye Drop] 1 drop BOTH EYES HS 03/09/21 [History] Levothyroxine Sodium [Synthroid] 137 mcg PO DAILY 03/09/21 [History] Metoprolol Succinate (ER) [Toprol XL] 100 mg PO DAILY 03/09/21 [History] Multivitamins, Thera [Multivitamin (formulary)] 1 tab PO DAILY 03/09/21 [History] Sulfamethox-Tmp 800-160Mg [Bactrim DS 800-160 mg] 1 tab PO BID 03/09/21 [History] Zinc 50 mg PO DAILY 03/09/21 [History] amLODIPine [Norvasc] 10 mg PO HS 03/09/21 [History] Benzocaine/Menthol Lozeng [Cepacol lozenge] 1 each MUCOUS MEM Q4HR PRN #20 lozenge 03/10/21 [Rx] Budesonide/Formoterol Fumarate [Symbicort 160-4.5 Mcg Inhaler] 1 puff IH BID 30 Days #10.2 gm 03/10/21 [Rx] Cefuroxime Axetil [Ceftin] 500 mg PO BID 4 Days #8 tab 03/10/21 [Rx] Ipratropium-Albuterol Nebulize [Duoneb 0.5 mg-3 mg/3 ml Soln] 3 ml INHALATION RT-Q4H PRN ml 03/10/21 [Rx] Ipratropium-Albuterol Nebulize [Duoneb 0.5 mg-3 mg/3 ml Soln] 3 ml INHALATION RT-QID 30 Days #90 ml 03/10/21 [Rx] Pantoprazole [Protonix] 40 mg PO AC-BRKFST 30 Days #30 tab 03/10/21 [Rx] predniSONE 10 mg PO DIRECTED #30 tab 03/10/21 [Rx] Follow up Appointment(s)/Referral(s): Leia San III, MD [Primary Care Provider] - 1-2 days (Please call office to schedule your appointment.) Ambulatory/Diagnostic Orders: Complete Blood Count w/diff [LAB.AMB] Time Frame: 3 Days, Location: None Selected Patient Instructions/Handouts: COPD (Chronic Obstructive Pulmonary Disease) (DC) Activity/Diet/Wound Care/Special Instructions: Activity Limited until follow-up Follow-up with primary care provider on discharge 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
== END 2021-03-10 17:46 | disposition home or self-care (01) ==
LOC: EC 22:08 → 4SSUR 03-09 02:55 → INTOOBSV 03-09 02:55 → 4SSUR 03-09 05:47 → UNDODISIN 03-10 17:46
PROVIDERS: ADMIT Internal Medicine; ATTEND Internal Medicine
DX: J44.1 Chronic obstructive pulmonary disease with (acute) exacerbation (principal); J96.01 Acute respiratory failure with hypoxia; E87.1 Hypo-osmolality and hyponatremia; E11.9 Type 2 diabetes mellitus without complications; K21.9 Gastro-esophageal reflux disease without esophagitis; I10 Essential (primary) hypertension; G47.30 Sleep apnea, unspecified; C78.00 Secondary malignant neoplasm of unspecified lung; C33 Malignant neoplasm of trachea; M19.90 Unspecified osteoarthritis, unspecified site; E03.9 Hypothyroidism, unspecified; K80.20 Calculus of gallbladder without cholecystitis without obstruction; R60.9 Edema, unspecified; Z20.822 Contact with and (suspected) exposure to COVID-19; Z92.21 Personal history of antineoplastic chemotherapy; Z87.891 Personal history of nicotine dependence; Z85.828 Personal history of other malignant neoplasm of skin; Z85.118 Personal history of other malignant neoplasm of bronchus and lung; Z85.21 Personal history of malignant neoplasm of larynx; Z92.3 Personal history of irradiation; Z99.81 Dependence on supplemental oxygen; Z93.0 Tracheostomy status; Z79.899 Other long term (current) drug therapy; Z79.890 Hormone replacement therapy; Z79.4 Long term (current) use of insulin; Z79.51 Long term (current) use of inhaled steroids; Z80.9 Family history of malignant neoplasm, unspecified
CPT/HCPCS: 96376; 96366; 96367; 96372 ×2; 96375; 96365; 99285; 36415; 94640 ×4; 93005; 85379; 83880; 80053; 80048; 83605; 84484; 85025 ×2; 85610; 85730; 87040 ×2; 87635; 71046; 71275; G0378 ×2; J3370; J2930 ×2; J0696; J7512; Q9967; J1644 ×2

== ENCOUNTER 2021-03-23 10:11 | Emergency (ER) | payer MEDICARE ==
[2021-03-23] MEDS ORDERED: IPRATROPIUM 0.5 MG/2.5 ML NEBU INHALATION STA (10:19)
[2021-03-23] MEDS ORDERED: ALBUTEROL NEBULIZED 2.5 MG/3 ML INHALATION STA (10:19)
[2021-03-23] MEDS ORDERED: DEXAMETHASONE SOD PHOSPHATE 10 MG/ML 1 ML VIAL IV STA (10:19)
[2021-03-23 10:20] VITALS: TEMP 98.1
--- NOTE | 2021-03-23 10:23 | ED ---
General Adult HPI - General Chief complaint: Shortness of Breath Stated complaint: respiratory distress Time Seen by Provider: 03/23/21 10:12 Source: EMS Mode of arrival: EMS Limitations: no limitations - History of Present Illness Initial comments: Dictation was produced using My[employer] dictation software. please excuse any grammatical, word or spelling errors. Chief Complaint: 65-year-old male presents emergency department for dyspnea History of Present Illness: Patient 65-year-old male presents to the emergency department for dyspnea. Patient has history of lung cancer. He has a tracheostomy placed. Patient states that he had a airway laser procedure performed yesterday at the [facility]. He is feeling fine at the procedure yesterday. This morning he woke up with severe dyspnea. EMS was called patient brought to the emergency department. EMS reports that they try to perform some suctioning with suctioning of some dark brown material. They provided patient with a breathing treatment through his tracheostomy tube. She denies any chest pain. The ROS documented in this emergency department record has been reviewed and confirmed by me. Those systems with pertinent positive or negative responses christie ve been documented in the HPI. All other systems are other negative and/or noncontributory. PHYSICAL EXAM: General Impression: Alert and oriented x3, not in acute distress HEENT: Normocephalic atraumatic, extra-ocular movements intact, pupils equal and reactive to light bilaterally, mucous membranes moist. Cardiovascular: Tachycardic Chest: Positive retractions, poor air movement with auscultation to the lungs Abdomen: abdomen soft, non-tender, non-distended, no organomegaly Musculoskeletal: Pulses present and equal in all extremities, no peripheral edema Motor: no focal deficits noted Neurological: CN II-XII grossly intact, no focal motor or sensory deficits noted Skin: Intact with no visualized rashes Psych: Normal affect and mood ED course: 65-year-old male presents emergency department for shortness of breath. He had a airway procedure performed yesterday. He describes it as a laser procedure to burn off cancer as upon arrival shows heart rate of 1:30, is 92% on 15 L nonrebreather. Respiratory therapy was called the try to perform deep suctioning. There is thick material. Case discussed with Dr. Sterling who is willing to do stat bronchoscopy. Patient placed on humidified oxygen. Several minutes later patient's symptoms improved. He does appear to be more comfortable though still retracting slightly. Patient reports that he has not had humidified oxygen at home. EKG interpretation: Ventricular rate 142, sinus tachycardia, MD interval 150, QRS 84, QTC 46. No MD prolongation, no QTC prolongation, no ST or T-wave changes noted. Patient placed on him in a fight oxygen and reevaluated at the bedside with improvement of his symptoms. Pulmonology came down and performed a stat bronchoscopy. They were able to remove some debris. They did note that there is bronchial cancerous lesions throughout the airway. Patient is breathing much better after bronchoscopy. His vitals are improved. Patient is on 60% FiO2 tricolor is 97%. He is appears to be much more comfortable. Vital signs are improved. Pulmonology requested patient be transferred back to [facility] where the procedure was performed. Spoke with Dr. Barry the transfer line and he is accepting of patient as a tear to ER transfer. At this point he is much improved. Considering dramatic improvement I believe patient is stable for ground transport. He reports feeling much better. - Related Data Home Medications Medication Instructions Recorded Confirmed Atorvastatin [Lipitor] 40 mg PO HS 09/14/13 03/09/21 Ascorbic Acid [Vitamin C] 1,000 mg PO DAILY 03/09/21 03/09/21 Elderberry Fruit and Flower [Black 1 cap PO DAILY 03/09/21 03/09/21 Elderberry 575 mg Cap] Fluconazole 200 mg PO DAILY 03/09/21 03/09/21 Insulin Glargine,Hum.rec.anlog 28 unit SQ DAILY 03/09/21 03/09/21 [Lantus Solostar Pen] Latanoprost/Pf [Latanoprost 0.005% 1 drop BOTH EYES HS 03/09/21 03/09/21 Eye Drop] Levothyroxine Sodium [Synthroid] 137 mcg PO DAILY 03/09/21 03/09/21 Metoprolol Succinate (ER) [Toprol 100 mg PO DAILY 03/09/21 03/09/21 XL] Multivitamins, Thera [Multivitamin 1 tab PO DAILY 03/09/21 03/09/21 (formulary)] Sulfamethox-Tmp 800-160Mg [Bactrim 1 tab PO BID 03/09/21 03/09/21 DS 800-160 mg] Zinc 50 mg PO DAILY 03/09/21 03/09/21 amLODIPine [Norvasc] 10 mg PO HS 03/09/21 03/09/21 Previous Rx's Medication Instructions Recorded Benzocaine/Menthol Lozeng [Cepacol 1 each MUCOUS MEM Q4HR PRN #20 03/10/21 lozenge] lozenge Budesonide/Formoterol Fumarate 1 puff IH BID 30 Days #10.2 gm 03/10/21 [Symbicort 160-4.5 Mcg Inhaler] Cefuroxime Axetil [Ceftin] 500 mg PO BID 4 Days #8 tab 03/10/21 Ipratropium-Albuterol Nebulize 3 ml INHALATION RT-Q4H PRN ml 03/10/21 [Duoneb 0.5 mg-3 mg/3 ml Soln] Ipratropium-Albuterol Nebulize 3 ml INHALATION RT-QID 30 Days #90 03/10/21 [Duoneb 0.5 mg-3 mg/3 ml Soln] ml Pantoprazole [Protonix] 40 mg PO AC-BRKFST 30 Days #30 tab 03/10/21 predniSONE 10 mg PO DIRECTED #30 tab 03/10/21 Allergies Allergy/AdvReac Type Severity Reaction Status Date / Time No Known Allergies Allergy Verified 03/23/21 10:20 Review of Systems ROS Statement: Those systems with pertinent positive or pertinent negative responses have been documented in the HPI. ROS Other: All systems not noted in ROS Statement are negative. Past Medical History Past Medical History: Cancer, GERD/Reflux, Hypertension, Sleep Apnea/CPAP/BIPAP Additional Past Medical History / Comment(s): edema-both feet, trachial cancer, bronchial cancer History of Any Multi-Drug Resistant Organisms: None Reported Past Surgical History: Orthopedic Surgery Additional Past Surgical History / Comment(s): arthroscopic-dillon knees, rt shoulder, nasal/sinus surgery, trachial removal and insertion of a "t-tube" t phong. Past Anesthesia/Blood Transfusion Reactions: No Reported Reaction Past Psychological History: No Psychological Hx Reported Smoking Status: Former smoker Past Alcohol Use History: Occasional Past Drug Use History: None Reported - Past Family History Sister(s) Family Medical History: Cancer General Exam Limitations: no limitations Course Vital Signs 03/23/21 03/23/21 03/23/21 10:14 11:00 11:09 Temperature 98.1 F Pulse Rate 130 H 132 H 117 H Respiratory 18 22 24 Rate Blood Pressure 151/103 122/83 O2 Sat by Pulse 92 L 95 Oximetry 03/23/21 03/23/21 03/23/21 11:21 11:22 11:46 Temperature Pulse Rate 126 H 120 H 112 H Respiratory 33 H 18 22 Rate Blood Pressure 118/80 O2 Sat by Pulse 99 97 Oximetry Medical Decision Making - Lab Data Result diagrams: 03/23/21 10:27 03/23/21 10:27 Lab Results 03/23/21 03/23/21 03/23/21 Range/Units 10:27 10:27 10:27 WBC 25.9 H (3.8-10.6) k/uL RBC 4.18 L (4.30-5.90) m/uL Hgb 12.8 L (13.0-17.5) gm/dL Hct 38.6 L (39.0-53.0) % MCV 92.4 (80.0-100.0) fL MCH 30.6 (25.0-35.0) pg MCHC 33.1 (31.0-37.0) g/dL RDW 16.3 H (11.5-15.5) % Plt Count 391 D (150-450) k/uL MPV 6.8 Neutrophils % 95 % Lymphocytes % 2 % Monocytes % 3 % Eosinophils % 0 % Basophils % 0 % Neutrophils # 24.6 H (1.3-7.7) k/uL Lymphocytes # 0.6 L (1.0-4.8) k/uL Monocytes # 0.6 (0-1.0) k/uL Eosinophils # 0.0 (0-0.7) k/uL Basophils # 0.0 (0-0.2) k/uL Manual Slide Review Performed Anisocytosis Slight PT 10.4 (9.0-12.0) sec INR 0.9 (<1.2) APTT 20.3 L (22.0-30.0) sec VBG pH (7.31-7.41) VBG pCO2 (37-51) mmHg VBG HCO3 (24-28) mmol/L Sodium 134 L (137-145) mmol/L Potassium 4.2 (3.5-5.1) mmol/L Chloride 100 (98-107) mmol/L Carbon Dioxide 25 (22-30) mmol/L Anion Gap 9 mmol/L BUN 20 (9-20) mg/dL Creatinine 0.82 (0.66-1.25) mg/dL Est GFR (CKD-EPI)AfAm >90 (>60 ml/min/1.73 sqM) Est GFR (CKD-EPI)NonAf >90 (>60 ml/min/1.73 sqM) Glucose 288 H (74-99) mg/dL Calcium 9.5 (8.4-10.2) mg/dL Coronavirus (PCR) (Not Detectd) 03/23/21 03/23/21 Range/Units 10:27 10:32 WBC (3.8-10.6) k/uL RBC (4.30-5.90) m/uL Hgb (13.0-17.5) gm/dL Hct (39.0-53.0) % MCV (80.0-100.0) fL MCH (25.0-35.0) pg MCHC (31.0-37.0) g/dL RDW (11.5-15.5) % Plt Count (150-450) k/uL MPV Neutrophils % % Lymphocytes % % Monocytes % % Eosinophils % % Basophils % % Neutrophils # (1.3-7.7) k/uL Lymphocytes # (1.0-4.8) k/uL Monocytes # (0-1.0) k/uL Eosinophils # (0-0.7) k/uL Basophils # (0-0.2) k/uL Manual Slide Review Anisocytosis PT (9.0-12.0) sec INR (<1.2) APTT (22.0-30.0) sec VBG pH 7.37 (7.31-7.41) VBG pCO2 44 (37-51) mmHg VBG HCO3 25 (24-28) mmol/L Sodium (137-145) mmol/L Potassium (3.5-5.1) mmol/L Chloride (98-107) mmol/L Carbon Dioxide (22-30) mmol/L Anion Gap mmol/L BUN (9-20) mg/dL Creatinine (0.66-1.25) mg/dL Est GFR (CKD-EPI)AfAm (>60 ml/min/1.73 sqM) Est GFR (CKD-EPI)NonAf (>60 ml/min/1.73 sqM) Glucose (74-99) mg/dL Calcium (8.4-10.2) mg/dL Coronavirus (PCR) Not Detected (Not Detectd) Disposition Clinical Impression: Respiratory failure Disposition: TRANSFER TO PSYCH HOSP/UNIT Condition: Fair Referrals: Leia San III, MD [Primary Care Provider] - 1-2 days - Out of Hospital Transfer - Req. Specs Out of Hospital Transfer - Requested Specifics: Other Emergency Center ([facility])
--- NOTE | 2021-03-23 10:30 | XR ---
EXAMINATION TYPE: XR chest 1V portable DATE OF EXAM: 03/23/2021 COMPARISON: 03/09/2021 HISTORY: Shortness of breath TECHNIQUE: Single frontal view of the chest is obtained. FINDINGS: There is no focal air space opacity, pleural effusion, or pneumothorax seen. The cardiac silhouette size is within normal limits. The osseous structures are intact. There is a tracheostomy tube the tip of which is 3.2 cm above the maximo. IMPRESSION: No acute process.
[2021-03-23 10:35] LABS: VBG PH 7.37 (7.31-7.41)
[2021-03-23 11:00] LABS: African American GFR (CKD) >90 (>60 ml/min/1.73 sqM); Anion Gap 9 mmol/L; Blood Urea Nitrogen 20 mg/dL (9-20); Calcium 9.5 mg/dL (8.4-10.2); Carbon Dioxide 25 mmol/L (22-30); Chloride 100 mmol/L (98-107); Glucose 288 mg/dL (74-99); Non-African American GFR(CKD) >90 (>60 ml/min/1.73 sqM); Potassium 4.2 mmol/L (3.5-5.1); Sodium 134 mmol/L (137-145)
[2021-03-23 11:07] LABS: Anisocytosis Slight; Basophils % (A) 0 %; Eosinophils % (A) 0 %; HCT 38.6 % (39.0-53.0); HGB 12.8 gm/dL (13.0-17.5); Lymphocytes # (A) 0.6 k/uL (1.0-4.8); Lymphocytes % (A) 2 %; MCH 30.6 pg (25.0-35.0); MCHC 33.1 g/dL (31.0-37.0); MCV 92.4 fL (80.0-100.0); Mean Platelet Volume 6.8; Monocytes # (A) 0.6 k/uL (0-1.0); Monocytes % (A) 3 %; Neutrophils # (A) 24.6 k/uL (1.3-7.7); Neutrophils % (A) 95 %; RBC 4.18 m/uL (4.30-5.90); RDW 16.3 % (11.5-15.5); WBC 25.9 k/uL (3.8-10.6)
[2021-03-23 11:08] LABS: Platelet Count 391 k/uL (150-450)
[2021-03-23 11:11] LABS: INR 0.9 (<1.2); Prothrombin Time 10.4 sec (9.0-12.0)
[2021-03-23 11:23] VITALS: BP 118/80
[2021-03-23 11:34] LABS: Partial Thromboplastin Time 20.3 sec (22.0-30.0)
[2021-03-23] MEDS ORDERED: PROPOFOL 10 MG/ML 20 ML VIAL IV ONE (12:00)
[2021-03-23] MEDS ORDERED: KETAMINE 10 MG/ML 20 ML VIAL ONE (12:00)
[2021-03-23] MEDS ORDERED: MIDAZOLAM 2 MG/2 ML VIAL ONE (12:00)
[2021-03-23] MEDS ORDERED: LIDOCAINE 2% INJ 20 MG/ML INTRATRACH ONE (12:04)
[2021-03-23 12:20] VITALS: PULSE 112
[2021-03-23 12:42] VITALS: RESP 98
--- NOTE | 2021-03-23 13:25 | PCN ---
PROCEDURE NOTE PROCEDURE: Emergent bronchoscopy, airway examination and therapeutic lavage. PREOPERATIVE DIAGNOSIS: Tracheal carcinoma. POSTOPERATIVE DIAGNOSIS: Tracheal carcinoma. OPERATORS: 1. Dr. Sterling. 2. Dr. Lay. ANESTHESIA: Provided by Anesthesia. PROCEDURE DESCRIPTION: There was informed consent and universal timeout. The patient's procedure was done in the trauma room in the emergency department. After the patient was adequately sedated, the bronchoscope was inserted through the tracheostomy tube. There were thick secretions noted within the tracheostomy tube. They were suctioned. Next, the bronchoscope was taken down into the actual trachea beyond the tracheostomy tube. The airway was topicalized with lidocaine. There were multiple tumors noted throughout the trachea. They extended all the way down to the tracheal maximo. They were mostly on the lateral wall of the trachea, more so on the right lateral wall than on the left lateral wall. We did take some pictures. One of the tumors looked like it had been cauterized. The tumors had some superficial bleeding but nothing in the way of significant bleeding. These tumors were partially obstructing the trachea, but there was still an adequate air column in my opinion. Afterwards, the bronchoscope was withdrawn. The patient tolerated the procedure well. The plan is to transfer the patient to [facility], where the patient recently had a laser procedure done to the trachea. MMODL / IJN: [id number] /
== END 2021-03-23 13:22 ==
LOC: EC 10:11
DX: J96.90 Respiratory failure, unspecified, unspecified whether with hypoxia or hypercapnia (principal); I10 Essential (primary) hypertension; Z87.891 Personal history of nicotine dependence
CPT/HCPCS: 36415; 94645; 93005; 80048; 82803; 85025; 85610; 85730; 87635; 71045; 99285; 96374; J2001; J1100; 31645

== ENCOUNTER 2021-11-25 18:24 | Emergency (ER) | payer MEDICARE ==
[2021-11-25] MEDS ORDERED: SODIUM CHLORIDE 0.9% 500 ML 500 ML IV STA (19:03)
[2021-11-25] MEDS ORDERED: methylPREDNISolone SOD SUCCI 125 MG/2 ML VIAL IV STA (19:03)
[2021-11-25] MEDS ORDERED: SODIUM CHLORIDE 0.9% 1,000 ML IV STA (19:03)
[2021-11-25] MEDS ORDERED: IPRATROPIUM-ALBUTEROL 3 ML NEB INHALATION STA (19:03)
[2021-11-25 20:03] LABS: Basophils % (A) 0 %; Eosinophils % (A) 0 %; HCT 36.2 % (39.0-53.0); HGB 12.2 gm/dL (13.0-17.5); Lymphocytes # (A) 0.5 k/uL (1.0-4.8); Lymphocytes % (A) 4 %; MCHC 33.6 g/dL (31.0-37.0); MCV 83.3 fL (80.0-100.0); Mean Platelet Volume 7.9; Monocytes # (A) 0.5 k/uL (0-1.0); Monocytes % (A) 4 %; Neutrophils # (A) 9.8 k/uL (1.3-7.7); Neutrophils % (A) 89 %; Platelet Count 295 k/uL (150-450); RBC 4.35 m/uL (4.30-5.90); RDW 13.8 % (11.5-15.5)
[2021-11-25 20:12] LABS: ALT 18 U/L (4-49); AST 19 U/L (17-59); African American GFR (CKD) >90 (>60 ml/min/1.73 sqM); Alkaline Phosphatase 110 U/L (38-126); Anion Gap 13 mmol/L; Blood Urea Nitrogen 10 mg/dL (9-20); Calcium 9.3 mg/dL (8.4-10.2); Carbon Dioxide 25 mmol/L (22-30); Chloride 97 mmol/L (98-107); Glucose 153 mg/dL (74-99); Non-African American GFR(CKD) >90 (>60 ml/min/1.73 sqM); Potassium 4.4 mmol/L (3.5-5.1); Sodium 135 mmol/L (137-145); Total Bilirubin 0.4 mg/dL (0.2-1.3); Total Protein 6.5 g/dL (6.3-8.2)
[2021-11-25 20:17] LABS: Partial Thromboplastin Time 25.7 sec (22.0-30.0); Prothrombin Time 10.5 sec (9.0-12.0)
--- NOTE | 2021-11-25 20:44 | XR ---
EXAMINATION TYPE: XR chest 2V DATE OF EXAM: 11/25/2021 8:28 PM COMPARISON: Chest radiographs from 03/23/2021 TECHNIQUE: XR chest 2V Frontal and lateral views of the chest. CLINICAL INDICATION:Male, 65 years old with history of difficulty breathing; FINDINGS: Lungs/Pleura: There is no evidence of pleural effusion, focal consolidation, or pneumothorax. Pulmonary vascularity: Unremarkable. Heart/mediastinum: Cardiomediastinal silhouette is unremarkable. Atherosclerotic calcifications are seen in the aorta. Musculoskeletal: No acute osseous pathology. Lines/Tubes: Tracheostomy cannula tip projecting over the trachea. IMPRESSION: 1. No acute cardiopulmonary disease/process. 2. Tracheostomy cannula in appropriate position.
--- NOTE | 2021-11-25 20:45 | XR ---
EXAMINATION TYPE: XR soft tissue neck DATE OF EXAM: 11/25/2021 8:28 PM INDICATION: Patient age:Male; 65 years old; Reason for study: surinder; COMPARISON: Chest radiograph same day. TECHNIQUE: The soft tissues of the neck were imaged in 2 views. FINDINGS: Postsurgical changes with tracheostomy cannula felt to be particularly the trachea. Multipl e surgical clips are present. Sternotomy wires are present. IMPRESSION: Tracheostomy cannula projecting over the trachea. No obvious etiology of patient's difficulty breathi ng.
--- NOTE | 2021-11-25 21:22 | ED ---
SOB HPI - General Chief Complaint: Shortness of Breath Stated Complaint: SOB Time Seen by Provider: 11/25/21 18:41 Source: patient, EMS Mode of arrival: EMS Limitations: no limitations - History of Present Illness Initial Comments: This 65-year-old male presents with a complaint of shortness of breath. He does have a history of lung cancer and has had tracheostomy. He states that the tracheostomy was just replaced one week ago at [facility]. He has an ENT at their facility. He states that the tracheostomy does not feel cracked. He relates that it is shorter and wider than his previous one. He has had a slight productive sputum from his tracheostomy. He does suction this himself. He denies any fevers or chills. He is on Bactrim prophylactically daily. He denies any chest pain or any other areas of pain. He denies any othe r complaints or modifying factors. - Related Data Home Medications Medication Instructions Recorded Confirmed Atorvastatin [Lipitor] 40 mg PO HS 09/14/13 03/09/21 Ascorbic Acid [Vitamin C] 1,000 mg PO DAILY 03/09/21 03/09/21 Elderberry Fruit and Flower [Black 1 cap PO DAILY 03/09/21 03/09/21 Elderberry 575 mg Cap] Fluconazole 200 mg PO DAILY 03/09/21 03/09/21 Insulin Glargine,Hum.rec.anlog 28 unit SQ DAILY 03/09/21 03/09/21 [Lantus Solostar Pen] Latanoprost/Pf [Latanoprost 0.005% 1 drop BOTH EYES HS 03/09/21 03/09/21 Eye Drop] Levothyroxine Sodium [Synthroid] 137 mcg PO DAILY 03/09/21 03/09/21 Metoprolol Succinate (ER) [Toprol 100 mg PO DAILY 03/09/21 03/09/21 XL] Multivitamins, Thera [Multivitamin 1 tab PO DAILY 03/09/21 03/09/21 (formulary)] Sulfamethox-Tmp 800-160Mg [Bactrim 1 tab PO BID 03/09/21 03/09/21 DS 800-160 mg] Zinc 50 mg PO DAILY 03/09/21 03/09/21 amLODIPine [Norvasc] 10 mg PO HS 03/09/21 03/09/21 Previous Rx's Medication Instructions Recorded Benzocaine/Menthol Lozeng [Cepacol 1 each MUCOUS MEM Q4HR PRN #20 03/10/21 lozenge] lozenge Budesonide/Formoterol Fumarate 1 puff IH BID 30 Days #10.2 gm 03/10/21 [Symbicort 160-4.5 Mcg Inhaler] Ipratropium-Albuterol Nebulize 3 ml INHALATION RT-Q4H PRN ml 03/10/21 [Duoneb 0.5 mg-3 mg/3 ml Soln] Ipratropium-Albuterol Nebulize 3 ml INHALATION RT-QID 30 Days #90 03/10/21 [Duoneb 0.5 mg-3 mg/3 ml Soln] ml Pantoprazole [Protonix] 40 mg PO AC-BRKFST 30 Days #30 tab 03/10/21 cefUROXime axetiL [Ceftin] 500 mg PO BID 4 Days #8 tab 03/10/21 predniSONE 10 mg PO DIRECTED #30 tab 03/10/21 Amoxic-Pot Clav 875-125Mg 1 each PO Q12HR #20 tablet 11/25/21 [Augmentin Xr 875-125] Allergies Allergy/AdvReac Type Severity Reaction Status Date / Time No Known Allergies Allergy Verified 11/25/21 18:35 Review of Systems ROS Statement: Those systems with pertinent positive or pertinent negative responses have been documented in the HPI. ROS Other: All systems not noted in ROS Statement are negative. Past Medical History Past Medical History: Cancer, GERD/Reflux, Hypertension, Sleep Apnea/CPAP/BIPAP Additional Past Medical History / Comment(s): edema-both feet, trachial cancer, bronchial cancer History of Any Multi-Drug Resistant Organisms: None Reported Past Surgical History: Orthopedic Surgery Additional Past Surgical History / Comment(s): arthroscopic-dillon knees, rt shoulder, nasal/sinus surgery, trachial removal and insertion of a "t-tube" trach. Past Anesthesia/Blood Transfusion Reactions: No Reported Reaction Past Psychological History: No Psychological Hx Reported Smoking Status: Former smoker Past Alcohol Use History: Occasional Past Drug Use History: None Reported - Past Family History Sister(s) Family Medical History: Cancer General Exam - General Exam Comments Initial Comments: GENERAL: The patient is well nourished and well hydrated. VITAL SIGNS: Heart rate, blood pressure, respiratory rate reviewed as recorded in nurse's notes. EYES: Pupils are round and reactive. Extraocular movements are intact. No conjunctival / lid redness or swelling. ENT: No external evidence of injury, swelling, or ecchymosis. Airway is patent. Throat is clear. NECK: Nontender. No swelling or evidence of injury. No subcutaneous emphysema. Trachea is midline. No thyroid mass. There is a tracheostomy present in the anterior neck. HEART: Regular rate and rhythm. Good peripheral pulses. LUNGS/CHEST: Breath sounds clear and equal bilaterally. No rales, rhonchi, or w heezes. No ecchymosis, subcutaneous emphysema, or tenderness. ABDOMEN: Abdomen soft without tenderness. No palpable masses or organomegaly. No peritoneal signs. No abdominal wall swelling or ecchymosis. EXTREMITIES: No extremity tenderness. Normal muscle tone and function. No thoracolumbar tenderness. NEUROLOGIC: Sensation is grossly intact. Cranial nerve exam reveals face is symmetrical, tongue is midline, speech is clear. SKIN: No abrasions or ecchymosis is noted. No induration or masses noted. PSYCHIATRIC: Alert and oriented. Appropriate behavior and judgment. Limitations: no limitations Course Vital Signs 11/25/21 11/25/21 11/25/21 18:26 18:36 18:46 Temperature 99.8 F H Pulse Rate 89 Respiratory 16 24 Rate Blood Pressure 123/75 O2 Sat by Pulse 97 Oximetry Fraction of 28 Inspired Oxygen (FIO2) 11/25/21 11/25/21 20:04 20:08 Temperature Pulse Rate 70 74 Respiratory Rate Blood Pressure O2 Sat by Pulse Oximetry Fraction of Inspired Oxygen (FIO2) Medical Decision Making - Medical Decision Making The patient was seen and examined. All diagnostics are reviewed. He has an EKG done which shows a normal sinus rhythm at a rate of 69. There is some minimal artifact noted. There is no acute ST-T wave changes identified. The ME intervals 164, QRS duration is 83, and QTC intervals 418. The patient has a chest x-ray which does not show any evidence of pneumonia. He has a soft tissue neck x-ray which does show good placement of the tracheostomy tube. The white blood cell count is only minimally elevated. He does receive a DuoNeb breathing treatment but does not seem to have any relief from the breathing treatment. There is a mild malodorous scent from the tracheostomy tube. It is felt as though he potentially could have a slight bronchitis. He is given a dose of Rocephin. His oxygen has remained stable throughout ER course. It is felt as though he stable for discharge and will be placed on Augmentin. He is informed that he should follow-up with his ENT physician out of [facility] for further evaluation of his concerns in regard to his tracheostomy tube not feeling normal. He is agreeable to this plan and leaves in no identifiable distress. Return parameters are discussed. - Lab Data Result diagrams: 11/25/21 19:54 11/25/21 19:54 Lab Results 11/25/21 11/25/21 11/25/21 Range/Units 19:54 19:54 19:54 WBC 11.0 H (3.8-10.6) k/uL RBC 4.35 (4.30-5.90) m/uL Hgb 12.2 L (13.0-17.5) gm/dL Hct 36.2 L (39.0-53.0) % MCV 83.3 (80.0-100.0) fL MCH 28.0 (25.0-35.0) pg MCHC 33.6 (31.0-37.0) g/dL RDW 13.8 (11.5-15.5) % Plt Count 295 (150-450) k/uL MPV 7.9 Neutrophils % 89 % Lymphocytes % 4 % Monocytes % 4 % Eosinophils % 0 % Basophils % 0 % Neutrophils # 9.8 H (1.3-7.7) k/uL Lymphocytes # 0.5 L (1.0-4.8) k/uL Monocytes # 0.5 (0-1.0) k/uL Eosinophils # 0.0 (0-0.7) k/uL Basophils # 0.0 (0-0.2) k/uL PT 10.5 (9.0-12.0) sec INR 1.0 (<1.2) APTT 25.7 (22.0-30.0) sec Sodium 135 L (137-145) mmol/L Potassium 4.4 (3.5-5.1) mmol/L Chloride 97 L (98-107) mmol/L Carbon Dioxide 25 (22-30) mmol/L Anion Gap 13 mmol/L BUN 10 (9-20) mg/dL Creatinine 0.87 (0.66-1.25) mg/dL Est GFR (CKD-EPI)AfAm >90 (>60 ml/min/1.73 sqM) Est GFR (CKD-EPI)NonAf >90 (>60 ml/min/1.73 sqM) Glucose 153 H (74-99) mg/dL Plasma Lactic Acid Billy (0.7-2.0) mmol/L Calcium 9.3 (8.4-10.2) mg/dL Total Bilirubin 0.4 (0.2-1.3) mg/dL AST 19 (17-59) U/L ALT 18 (4-49) U/L Alkaline Phosphatase 110 (38-126) U/L Troponin I (0.000-0.034) ng/mL NT-Pro-B Natriuret Pep pg/mL Total Protein 6.5 (6.3-8.2) g/dL Albumin 4.0 (3.5-5.0) g/dL Influenza Type A RNA (Not Detectd) Influenza Type B (PCR) (Not Detectd) 11/25/21 11/25/21 11/25/21 Range/Units 19:54 19:54 19:54 WBC (3.8-10.6) k/uL RBC (4.30-5.90) m/uL Hgb (13.0-17.5) gm/dL Hct (39.0-53.0) % MCV (80.0-100.0) fL MCH (25.0-35.0) pg MCHC (31.0-37.0) g/dL RDW (11.5-15.5) % Plt Count (150-450) k/uL MPV Neutrophils % % Lymphocytes % % Monocytes % % Eosinophils % % Basophils % % Neutrophils # (1.3-7.7) k/uL Lymphocytes # (1.0-4.8) k/uL Monocytes # (0-1.0) k/uL Eosinophils # (0-0.7) k/uL Basophils # (0-0.2) k/uL PT (9.0-12.0) sec INR (<1.2) APTT (22.0-30.0) sec Sodium (137-145) mmol/L Potassium (3.5-5.1) mmol/L Chloride (98-107) mmol/L Carbon Dioxide (22-30) mmol/L Anion Gap mmol/L BUN (9-20) mg/dL Creatinine (0.66-1.25) mg/dL Est GFR (CKD-EPI)AfAm (>60 ml/min/1.73 sqM) Est GFR (CKD-EPI)NonAf (>60 ml/min/1.73 sqM) Glucose (74-99) mg/dL Plasma Lactic Acid Billy 1.1 (0.7-2.0) mmol/L Calcium (8.4-10.2) mg/dL Total Bilirubin (0.2-1.3) mg/dL AST (17-59) U/L ALT (4-49) U/L Alkaline Phosphatase (38-126) U/L Troponin I <0.012 (0.000-0.034) ng/mL NT-Pro-B Natriuret Pep 927 pg/mL Total Protein (6.3-8.2) g/dL Albumin (3.5-5.0) g/dL Influenza Type A RNA (Not Detectd) Influenza Type B (PCR) (Not Detectd) 11/25/21 Range/Units 19:58 WBC (3.8-10.6) k/uL RBC (4.30-5.90) m/uL Hgb (13.0-17.5) gm/dL Hct (39.0-53.0) % MCV (80.0-100.0) fL MCH (25.0-35.0) pg MCHC (31.0-37.0) g/dL RDW (11.5-15.5) % Plt Count (150-450) k/uL MPV Neutrophils % % Lymphocytes % % Monocytes % % Eosinophils % % Basophils % % Neutrophils # (1.3-7.7) k/uL Lymphocytes # (1.0-4.8) k/uL Monocytes # (0-1.0) k/uL Eosinophils # (0-0.7) k/uL Basophils # (0-0.2) k/uL PT (9.0-12.0) sec INR (<1.2) APTT (22.0-30.0) sec Sodium (137-145) mmol/L Potassium (3.5-5.1) mmol/L Chloride (98-107) mmol/L Carbon Dioxide (22-30) mmol/L Anion Gap mmol/L BUN (9-20) mg/dL Creatinine (0.66-1.25) mg/dL Est GFR (CKD-EPI)AfAm (>60 ml/min/1.73 sqM) Est GFR (CKD-EPI)NonAf (>60 ml/min/1.73 sqM) Glucose (74-99) mg/dL Plasma Lactic Acid Billy (0.7-2.0) mmol/L Calcium (8.4-10.2) mg/dL Total Bilirubin (0.2-1.3) mg/dL AST (17-59) U/L ALT (4-49) U/L Alkaline Phosphatase (38-126) U/L Troponin I (0.000-0.034) ng/mL NT-Pro-B Natriuret Pep pg/mL Total Protein (6.3-8.2) g/dL Albumin (3.5-5.0) g/dL Influenza Type A RNA Not Detected (Not Detectd) Influenza Type B (PCR) Not Detected (Not Detectd) Disposition Clinical Impression: Bronchitis, History of lung cancer, Tracheostomy in place Disposition: HOME SELF-CARE Condition: Good Prescriptions: Amoxic-Pot Clav 875-125Mg [Augmentin Xr 875-125] 1 each PO Q12HR #20 tablet Is patient prescribed a controlled substance at d/c from ED?: No Referrals: Leia San III, MD [Primary Care Provider] - 1-2 days Time of Disposition: 21:22
[2021-11-25 21:59] VITALS: BP 120/73; PULSE 68; RESP 20; TEMP 99.5
== END 2021-11-25 22:26 | disposition home or self-care (01) ==
LOC: EC 18:24
DX: J40 Bronchitis, not specified as acute or chronic (principal); Z85.118 Personal history of other malignant neoplasm of bronchus and lung; Z93.0 Tracheostomy status; K21.9 Gastro-esophageal reflux disease without esophagitis; I10 Essential (primary) hypertension; Z87.891 Personal history of nicotine dependence; Z79.4 Long term (current) use of insulin; Z79.899 Other long term (current) drug therapy
CPT/HCPCS: 36415; 94640; 93005; 83880; 80053; 83605; 84484; 85025; 85610; 85730; 87040; 87502; 70360; 71046; 99285; 96365; 96375; 96361 ×3; J2930; J0696

== ENCOUNTER 2023-03-13 06:27 | Inpatient (IN) | payer MEDICARE ==
[2023-03-13] MEDS ORDERED: DILTIAZEM DRIP BOLUS FROM BAG 1 MG SOLN IV ONE (06:39)
--- NOTE | 2023-03-13 06:42 | ED ---
Chest Pain HPI - General Chief Complaint: Chest Pain Stated Complaint: CHEST PAIN Time Seen by Provider: 03/13/23 06:31 Source: patient, EMS, RN notes reviewed Mode of arrival: EMS Limitations: no limitations - History of Present Illness Initial Comments: 67-year-old male presents emergency Department chief complaint chest pain, shortness of breath. Patient states that he had centralized chest discomfort like his heart was racing. Patient states he does have a history of hypertension, diabetes and hyperlipidemia controlled on medications. Patient does admit that his blood sugar was elevated this morning from his usual. Patient states that he does have throat cancer he is on three-week infusions. Patient states that he had reconstructive surgery of his entire esophagus, trachea. Patient states that he had a new stent placed in his trach 3 weeks ago at [facility]. Patient CT did have A. fib once prior he denies any blood thinners. He states he is on and back surgery just picked up that was ordered by his own house, surgeon secondary to abnormal x-ray. - Related Data Home Medications Medication Instructions Recorded Confirmed Atorvastatin [Lipitor] 40 mg PO HS 09/14/13 03/09/21 Ascorbic Acid [Vitamin C] 1,000 mg PO DAILY 03/09/21 03/09/21 Elderberry Fruit and Flower [Black 1 cap PO DAILY 03/09/21 03/09/21 Elderberry 575 mg Cap] Fluconazole 200 mg PO DAILY 03/09/21 03/09/21 Insulin Glargine,Hum.rec.anlog 28 unit SQ DAILY 03/09/21 03/09/21 [Lantus Solostar Pen] Latanoprost/Pf [Latanoprost 0.005% 1 drop BOTH EYES HS 03/09/21 03/09/21 Eye Drop] Levothyroxine Sodium [Synthroid] 137 mcg PO DAILY 03/09/21 03/09/21 Metoprolol Succinate (ER) [Toprol 100 mg PO DAILY 03/09/21 03/09/21 XL] Multivitamins, Thera [Multivitamin 1 tab PO DAILY 03/09/21 03/09/21 (formulary)] Sulfamethox-Tmp 800-160Mg [Bactrim 1 tab PO BID 03/09/21 03/09/21 DS 800-160 mg] Zinc 50 mg PO DAILY 03/09/21 03/09/21 amLODIPine [Norvasc] 10 mg PO HS 03/09/21 03/09/21 Previous Rx's Medication Instructions Recorded Benzocaine/Menthol Lozeng [Cepacol 1 each MUCOUS MEM Q4HR PRN #20 03/10/21 lozenge] lozenge Budesonide/Formoterol Fumarate 1 puff IH BID 30 Days #10.2 gm 03/10/21 [Symbicort 160-4.5 Mcg Inhaler] Ipratropium-Albuterol Nebulize 3 ml INHALATION RT-Q4H PRN ml 03/10/21 [Duoneb 0.5 mg-3 mg/3 ml Soln] Ipratropium-Albuterol Nebulize 3 ml INHALATION RT-QID 30 Days #90 03/10/21 [Duoneb 0.5 mg-3 mg/3 ml Soln] ml Pantoprazole [Protonix] 40 mg PO AC-BRKFST 30 Days #30 tab 03/10/21 cefUROXime axetiL [Ceftin] 500 mg PO BID 4 Days #8 tab 03/10/21 predniSONE 10 mg PO DIRECTED #30 tab 03/10/21 Amoxic-Pot Clav 875-125Mg 1 each PO Q12HR #20 tablet 11/25/21 [Augmentin Xr 875-125] Allergies Allergy/AdvReac Type Severity Reaction Status Date / Time No Known Allergies Allergy Verified 03/13/23 06:37 Review of Systems ROS Statement: Those systems with pertinent positive or pertinent negative responses have been documented in the HPI. ROS Other: All systems not noted in ROS Statement are negative. EKG Findings - EKG Comments: EKG Findings:: EKG performed at 6:30 A. fib rvr rate of 174 QRS 85 QT/QTC 262/355 - EKG Results: EKG: interpreted by ERMD Past Medical History Past Medical History: Cancer, GERD/Reflux, Hypertension, Sleep Apnea/CPAP/BIPAP Additional Past Medical History / Comment(s): edema-both feet, trachial cancer, bronchial cancer History of Any Multi-Drug Resistant Organisms: None Reported Past Surgical History: Orthopedic Surgery Additional Past Surgical History / Comment(s): arthroscopic-dillon knees, rt shoulder, nasal/sinus surgery, trachial removal and insertion of a "t-tube" trach. Past Anesthesia/Blood Transfusion Reactions: No Reported Reaction Past Psychological History: No Psychological Hx Reported Smoking Status: Former smoker Past Alcohol Use History: Occasional Past Drug Use History: None Reported - Past Family History Sister(s) Family Medical History: Cancer General Exam General appearance: alert, in no apparent distress Head exam: Present: atraumatic, normocephalic, normal inspection Eye exam: Present: normal appearance, PERRL, EOMI. Absent: scleral icterus, conjunctival injection, periorbital swelling ENT exam: Present: normal exam, mucous membranes moist Neck exam: Present: full ROM. Absent: normal inspection (Trach), tenderness, meningismus, lymphadenopathy Respiratory exam: Present: rhonchi. Absent: normal lung sounds bilaterally, respiratory distress, wheezes, rales, stridor Cardiovascular Exam: Present: tachycardia, irregular rhythm, normal heart sounds. Absent: systolic murmur, diastolic murmur, rubs, gallop, clicks Neurological exam: Present: alert, oriented X3 Skin exam: Present: warm, dry, intact, normal color. Absent: rash Course Vital Signs 03/13/23 03/13/23 06:30 07:26 Temperature 97.4 F L Pulse Rate 138 H 150 H Respiratory 19 20 Rate Blood Pressure 121/107 110/60 O2 Sat by Pulse 99 98 Oximetry Chest Pain MDM - MDM Was pt. sent in by a medical professional or institution (GIANNA Acevedo, LEARNING TECHNOLOGIES SPECIALIST, urgent care, hospital, or [facility]...) When possible be specific @ -No Did you speak to anyone other than the patient for history (EMS, parent, family, police, friend...)? What history was obtained from this source @ -No Did you review nursing and triage notes (agree or disagree)? Why? @ -I reviewed and agree with nursing and triage notes Were old charts reviewed (outside hosp., previous admission, EMS record, old EKG, old radiological studies, urgent care reports/EKG's, [facility] records)? Report findings @ -Reviewed prior laboratory studies Differential Diagnosis (chest pain, altered mental status, abdominal pain women, abdominal pain men, vaginal bleeding, weakness, fever, dyspnea, syncope, headache, dizziness, GI bleed, back pain, seizure, CVA, palpatations, mental health, musculoskeletal)? @ -Differential Chest Pain: Stable Angina, Unstable Angina, STEMI, NSTEMI Aortic Dissection, Pneumothorax, Musculoskeletal, Esophageal Spasm GERD, Cholecystitis, Pancreatitis, Zoster, this is not meant to be an all-inclusive list. EKG interpreted by me (3pts min.). @ -As above X-rays interpreted by me (1pt min.). @ -Chest x-ray shows no acute cardiopulmonary process CT interpreted by me (1pt min.). @ -None done U/S interpreted by me (1pt. min.). @ -None done What testing was considered but not performed or refused? (CT, X-rays, U/S, labs)? Why? @ -None What meds were considered but not given or refused? Why? @ -None Did you discuss the management of the patient with other professionals (professionals i.e. , PA, LEARNING TECHNOLOGIES SPECIALIST, lab, RT, psych nurse, manager social media, gas desulfurizer, teacher, plant protection officer, leather case finisher)? Give summary @ - for admission secondary to A. fib RVR patient will consult cardiology. Was smoking cessation discussed for >3mins.? @ -No Was critical care preformed (if so, how long)? @ -35 minutes Were there social determinants of health that impacted care today? How? (Homelessness, low income, unemployed, alcoholism, drug addiction, transpor tation, low edu. Level, literacy, decrease access to med. care, fci, rehab)? @ -No Was there de-escalation of care discussed even if they declined (Discuss DNR or withdrawal of care, Hospice)? DNR status @ -No What co-morbidities impacted this encounter? (DM, HTN, Smoking, COPD, CAD, Cancer, CVA, ARF, Chemo, Hep., AIDS, mental health diagnosis, sleep apnea, morbid obesity)? @ -Throat CA, hypertension, hyperlipidemia Was patient admitted / discharged? Hospital course, mention meds given and route, prescriptions, significant lab abnormalities, going to OR and other pertinent info. @ -Admitted patient found to be in A. fib RVR patient initially was started on Cardizem 5 mg bolus with infusion patient was also started on heparin. Case discussed with admitting physician will consult cardiology. Patient's slept her studies are unremarkable. Chest x-ray was reviewed.] Undiagnosed new problem with uncertain prognosis? @ -No Drug Therapy requiring intensive monitoring for toxicity (Heparin, Nitro, I nsulin, Cardizem)? @ -Heparin, Cardizem Were any procedures done? @ -No Diagnosis/symptom? @ -[A. fib RVR, chest pain Acute, or Chronic, or Acute on Chronic? @ -Acute Uncomplicated (without systemic symptoms) or Complicated (systemic symptoms)? @ -[Complicated Side effects of treatment? @ -No Exacerbation, Progression, or Severe Exacerbation? @ -No Poses a threat to life or bodily function? How? (Chest pain, [place], [place], pneumonia, PE, COPD, DKA, ARF, appy, cholecystitis, CVA, Diverticulitis, Homicidal, Suicidal, threat to staff... and all critical care pts) @ -[Yes, arrhythmia Critical Care Time Critical Care Time: Yes Total Critical Care Time: 35 Disposition Clinical Impression: Atrial fibrillation with RVR Disposition: ADMITTED IP TO THIS HOSP Condition: Fair Referrals: Imtiaz Vasques DO [Primary Care Provider] - 1-2 days Time of Disposition: 08:25
[2023-03-13] MEDS: DILTIAZEM 125 MG in SODIUM CHLORIDE 0.9% 100 ML IV SCH (06:48)
[2023-03-13 06:58] LABS: Basophils # (A) 0.1 k/uL (0-0.2); Basophils % (A) 0 %; Eosinophils # (A) 0.1 k/uL (0-0.7); Eosinophils % (A) 1 %; HCT 36.2 % (39.0-53.0); HGB 11.5 gm/dL (13.0-17.5); Hypochromasia Slight; Lymphocytes # (A) 0.5 k/uL (1.0-4.8); Lymphocytes % (A) 3 %; MCH 25.5 pg (25.0-35.0); MCHC 31.8 g/dL (31.0-37.0); MCV 80.2 fL (80.0-100.0); Mean Platelet Volume 7.6; Monocytes # (A) 0.7 k/uL (0-1.0); Monocytes % (A) 4 %; Neutrophils # (A) 14.5 k/uL (1.3-7.7); Neutrophils % (A) 90 %; Platelet Count 264 k/uL (150-450); RBC 4.52 m/uL (4.30-5.90); RDW 15.6 % (11.5-15.5); WBC 16.1 k/uL (3.8-10.6)
[2023-03-13 07:08] LABS: INR 1.1 (<1.2); Partial Thromboplastin Time 23.6 sec (22.0-30.0); Prothrombin Time 11.7 sec (10.0-12.5)
[2023-03-13 07:30] LABS: ALT 17 U/L (4-49); AST 25 U/L (17-59); African American GFR (CKD) >90 (>60 ml/min/1.73 sqM); Albumin 3.6 g/dL (3.5-5.0); Alkaline Phosphatase 92 U/L (38-126); Anion Gap 10 mmol/L; Blood Urea Nitrogen 13 mg/dL (9-20); Calcium 9.1 mg/dL (8.4-10.2); Carbon Dioxide 21 mmol/L (22-30); Chloride 110 mmol/L (98-107); Glucose 160 mg/dL (74-99); Magnesium 1.7 mg/dL (1.6-2.3); Non-African American GFR(CKD) >90 (>60 ml/min/1.73 sqM); Sodium 141 mmol/L (137-145); Total Bilirubin 0.8 mg/dL (0.2-1.3); Total Protein 6.4 g/dL (6.3-8.2)
--- NOTE | 2023-03-13 07:44 | XR ---
EXAMINATION TYPE: XR chest 2V DATE OF EXAM: 03/13/2023 COMPARISON: 11/25/2021 HISTORY: Chest pain and cough TECHNIQUE: Frontal and lateral views of the chest are obtained. FINDINGS: There is no focal air space opacity, pleural effusion, or pneumothorax seen. The cardiac silhouette size is within normal limits. There are postsurgical changes of median sternotomy and stent within the trachea. IMPRESSION: No acute cardiopulmonary process.
[2023-03-13] MEDS ORDERED: HEPARIN SODIUM 1,000 UN/ML (10ML VL) IV ONE (08:33)
[2023-03-13] MEDS ORDERED: HEPARIN SODIUM 1,000 UN/ML (10ML VL) IV PRN (08:33)
[2023-03-13] MEDS ORDERED: NITROGLYCERIN SL TABS 0.4 MG TAB SUBLINGUAL PRN (08:33)
[2023-03-13] MEDS ORDERED: IPRATROPIUM-ALBUTEROL 3 ML NEB INHALATION STA (08:35)
[2023-03-13] MEDS ORDERED: ACETYLCYSTEINE 800 MG/4 ML VIAL INHALATION STA (08:35)
[2023-03-13] MEDS: HEPARIN SOD,PORK IN 0.45% NACL 25,000 UNIT in 0.45% NACL 1 250ML.BAG IV SCH (09:44)
--- NOTE | 2023-03-13 11:36 | P.HPIM ---
History of Present Illness H&P Date: 03/13/23 67-year-old male with PMH of tracheal cancer following [facility], hypertension, KEITH, dyslipidemia, diabetes mellitus, glaucoma, hypothyroidism. He reports waking up at 4:30 AM with chest pain. Associated symptoms included diaphoresis, palpitations and shortness of breath. He checked his blood sugar which was 183. Pulse ox revealed a heart rate of 147. He drinks 2 cups of coffee daily. Denies smoking cigarettes, drinks 3 alcoholic beverages monthly. In the ED, he underwent extensive evaluation. Heart rate noted to be in the 150 and 160s. CBC WBC count 16.1, hemoglobin 11.5, hematocrit 36.2. Coagulation panel within normal limits. D-Dimer 0.87. CMP Cl 110, bicarb 21, glu 160. Troponin 0.017, 0.066. Mag 1.7. EKG A-Fib with RVR. CXR no acute process. At the time of interview, he was chest pain free. Patient is started on Cardizem and Heparin drip and admitted for further management. General: non toxic, no distress, appears at stated age Derm: warm, dry, trach site dressing c/d/i Head: atraumatic, normocephalic, symmetric, protruding tounge Eyes: EOMI, no lid lag, anicteric sclera Mouth: no lip lesion, mucus membranes moist Cardiovascular: Irregularly irregular, no murmur Lungs: Clear to auscultation bilaterally, no rhonchi, no rales Abdominal: soft, nontender to palpation, no guarding, no appreciable organomegaly. Ext: no gross muscle atrophy, no edema, no contractures Neuro: No focal neurologic deficits. Psych: Alert and oriented x 3. Based on my assessment of this patient, this patient meets a high complexity level of care. Patient has an acute diagnosis of A-Fib wtih RVR that poses a threat to life or bodily function. Atrial fibrillation with RVR: Start Cardizem drip. Start low intensity heparin drip. Telemetry monitoring. Maintain K > 4 and Mg > 2. Obtain Echo. Obtain TSH. Cardiology consult. Troponin elevation: Likely demand ischemia from A-Fib. Trend Troponin. Elevated D-Dimer: Age adjusted D-Dimer 670. Not hypoxic. Low probability for PE. Continue to monitor for need of CTA chest. Leukocytosis: Unknow etiology. Possibly reactive. No signs of active infection. Monitor fever profile. Normocytic anemia: No signs of active bleeding. Chronic conditions: tracheal cancer, hypertension, KEITH, dyslipidemia, diabetes mellitus, glaucoma, hypothyroidism Waiting on home medications to be verified prior to restarting. CODE STATUS: FULL CODE. DVT Prophylaxis: Heparin drip. GI Prophylaxis: Designated medical POA if patient is not able to make medical decisions for themselves: Liset Bailey (sister). I have reviewed the following health and safety consultant notes: I have reviewed the results of the following tests: As above. I have ordered the following tests: As above. I have discussed the care of this patient with the following independent historian: I have independently interpreted the following test below: EKG as above. I have discussed the management of this patient with the following physician: ED provider. Past Medical History Past Medical History: Cancer, GERD/Reflux, Hypertension, Sleep Apnea/CPAP/BIPAP Additional Past Medical History / Comment(s): edema-both feet, trachial cancer, bronchial cancer History of Any Multi-Drug Resistant Organisms: None Reported Past Surgical History: Orthopedic Surgery Additional Past Surgical History / Comment(s): arthroscopic-dillon knees, rt shoulder, nasal/sinus surgery, trachial removal and insertion of a "t-tube" trach. Past Anesthesia/Blood Transfusion Reactions: No Reported Reaction Past Psychological History: No Psychological Hx Reported Smoking Status: Former smoker Past Alcohol Use History: Occasional Past Drug Use History: None Reported - Past Family History Sister(s) Family Medical History: Cancer Medications and Allergies Home Medications Medication Instructions Recorded Confirmed Type Atorvastatin [Lipitor] 40 mg PO HS 09/14/13 03/09/21 History Ascorbic Acid [Vitamin C] 1,000 mg PO DAILY 03/09/21 03/09/21 History Elderberry Fruit and Flower [Black 1 cap PO DAILY 03/09/21 03/09/21 History Elderberry 575 mg Cap] Fluconazole 200 mg PO DAILY 03/09/21 03/09/21 History Insulin Glargine,Hum.rec.anlog 28 unit SQ DAILY 03/09/21 03/09/21 History [Lantus Solostar Pen] Latanoprost/Pf [Latanoprost 0.005% 1 drop BOTH EYES HS 03/09/21 03/09/21 History Eye Drop] Levothyroxine Sodium [Synthroid] 137 mcg PO DAILY 03/09/21 03/09/21 History Metoprolol Succinate (ER) [Toprol 100 mg PO DAILY 03/09/21 03/09/21 History XL] Multivitamins, Thera [Multivitamin 1 tab PO DAILY 03/09/21 03/09/21 History (formulary)] Sulfamethox-Tmp 800-160Mg [Bactrim 1 tab PO BID 03/09/21 03/09/21 History DS 800-160 mg] Zinc 50 mg PO DAILY 03/09/21 03/09/21 History amLODIPine [Norvasc] 10 mg PO HS 03/09/21 03/09/21 History Benzocaine/Menthol Lozeng [Cepacol 1 each MUCOUS MEM Q4HR PRN #20 03/10/21 Rx lozenge] lozenge Budesonide/Formoterol Fumarate 1 puff IH BID 30 Days #10.2 gm 03/10/21 Rx [Symbicort 160-4.5 Mcg Inhaler] Ipratropium-Albuterol Nebulize 3 ml INHALATION RT-Q4H PRN ml 03/10/21 Rx [Duoneb 0.5 mg-3 mg/3 ml Soln] Ipratropium-Albuterol Nebulize 3 ml INHALATION RT-QID 30 Days #90 03/10/21 Rx [Duoneb 0.5 mg-3 mg/3 ml Soln] ml Pantoprazole [Protonix] 40 mg PO AC-BRKFST 30 Days #30 tab 03/10/21 Rx cefUROXime axetiL [Ceftin] 500 mg PO BID 4 Days #8 tab 03/10/21 Rx predniSONE 10 mg PO DIRECTED #30 tab 03/10/21 Rx Amoxic-Pot Clav 875-125Mg 1 each PO Q12HR #20 tablet 11/25/21 Rx [Augmentin Xr 875-125] Allergies Allergy/AdvReac Type Severity Reaction Status Date / Time No Known Allergies Allergy Verified 03/13/23 06:37 Physical Exam Vitals: Vital Signs Temp Pulse Resp BP Pulse Ox 03/13/23 10:41 129 H 20 112/60 94 L 03/13/23 09:28 157 H 03/13/23 09:12 151 H 03/13/23 07:26 150 H 20 110/60 98 03/13/23 06:30 97.4 F L 138 H 19 121/107 99 Intake and Output 03/12/23 03/13/23 03/13/23 22:59 06:59 14:59 Other: Weight 88.451 kg Results CBC & Chem 7: 03/13/23 06:42 03/13/23 06:42 Labs: Abnormal Lab Results - Last 24 Hours (Table) 03/13/23 03/13/23 03/13/23 Range/Units 06:42 06:42 08:55 WBC 16.1 H (3.8-10.6) k/uL Hgb 11.5 L (13.0-17.5) gm/dL Hct 36.2 L (39.0-53.0) % RDW 15.6 H (11.5-15.5) % Neutrophils # 14.5 H (1.3-7.7) k/uL Lymphocytes # 0.5 L (1.0-4.8) k/uL D-Dimer (<0.60) mg/L FEU Chloride 110 H (98-107) mmol/L Carbon Dioxide 21 L (22-30) mmol/L Glucose 160 H (74-99) mg/dL Troponin I 0.066 H* (0.000-0.034) ng/mL 03/13/23 Range/Units 09:40 WBC (3.8-10.6) k/uL Hgb (13.0-17.5) gm/dL Hct (39.0-53.0) % RDW (11.5-15.5) % Neutrophils # (1.3-7.7) k/uL Lymphocytes # (1.0-4.8) k/uL D-Dimer 0.87 H (<0.60) mg/L FEU Chloride (98-107) mmol/L Carbon Dioxide (22-30) mmol/L Glucose (74-99) mg/dL Troponin I (0.000-0.034) ng/mL
[2023-03-13] MEDS: MAGNESIUM SULFATE-D5W PMX 1 GM in DEXTROSE/WATER 1 100ML.BAG IVPB SCH ×2 (12:38→15:10)
[2023-03-13] MEDS ORDERED: DEXTROSE 50% SYRINGE 50 ML IVP PRN ×2 (15:21)
[2023-03-13] MEDS ORDERED: IPRATROPIUM 0.5 MG/2.5 ML NEBU INHALATION SCH (16:00)
[2023-03-13 16:49] LABS: Glucose,Whole Blood 228 mg/dL (70-110)
[2023-03-13] MEDS: PANTOPRAZOLE 40 MG TABLET PO SCH (16:55)
[2023-03-13] MEDS: INSULIN DETEMIR (LEVEMIR) 100 UNIT/ML SYR SQ SCH (16:55)
[2023-03-13] MEDS: METOPROLOL SUCCINATE (ER) 50 MG TAB.ER.24H PO SCH (16:55)
[2023-03-13] MEDS: FINASTERIDE 5 MG TAB PO SCH (16:55)
[2023-03-13] MEDS: LEVOTHYROXINE 137 MCG TAB PO SCH (16:56)
[2023-03-13] MEDS: INSULIN ASPART (NovoLOG) 100 UNIT/ML VIAL SQ SCH ×2 (16:56→20:26)
[2023-03-13] MEDS: AMOXIC-POT CLAV 200-28.5MG/5ML 100 ML BOTTLE PO SCH (17:26)
[2023-03-13] MEDS: BENZONATATE 100 MG CAP PO PRN (17:33)
[2023-03-13] MEDS ORDERED: ACETYLCYSTEINE 800 MG/4 ML VIAL INHALATION SCH ×2 (20:00→21:30)
[2023-03-13 20:23] LABS: Glucose,Whole Blood 101 mg/dL (70-110)
[2023-03-13] MEDS ORDERED: ATORVASTATIN 40 MG TAB PO SCH (21:00)
[2023-03-13] MEDS ORDERED: LOSARTAN 50 MG TAB PO SCH (21:00)
[2023-03-13] MEDS: IPRATROPIUM-ALBUTEROL 3 ML NEB INHALATION SCH ×2 (21:04→21:06)
[2023-03-13] MEDS: ACETYLCYSTEINE 800 MG/4 ML VIAL INHALATION SCH (21:27)
[2023-03-14] MEDS: AMOXIC-POT CLAV 200-28.5MG/5ML 100 ML BOTTLE PO SCH (04:25)
[2023-03-14 06:11] LABS: Glucose,Whole Blood 86 mg/dL (70-110)
[2023-03-14] MEDS: DILTIAZEM 125 MG in SODIUM CHLORIDE 0.9% 100 ML IV SCH (06:25)
[2023-03-14] MEDS: INSULIN ASPART (NovoLOG) 100 UNIT/ML VIAL SQ SCH ×2 (06:25→13:21)
[2023-03-14] MEDS ORDERED: SYMBICORT 80-4.5 MCG INHALER INHALATION SCH (08:00)
[2023-03-14] MEDS: IPRATROPIUM-ALBUTEROL 3 ML NEB INHALATION SCH ×2 (08:06→11:55)
[2023-03-14] MEDS: ACETYLCYSTEINE 800 MG/4 ML VIAL INHALATION SCH (08:06)
[2023-03-14] MEDS: INSULIN DETEMIR (LEVEMIR) 100 UNIT/ML SYR SQ SCH (08:35)
[2023-03-14] MEDS: FINASTERIDE 5 MG TAB PO SCH (08:35)
[2023-03-14] MEDS: METOPROLOL SUCCINATE (ER) 50 MG TAB.ER.24H PO SCH (08:35)
[2023-03-14] MEDS: LEVOTHYROXINE 137 MCG TAB PO SCH (08:36)
[2023-03-14] MEDS: PANTOPRAZOLE 40 MG TABLET PO SCH (08:36)
[2023-03-14 08:47] LABS: Glucose,Whole Blood 125 mg/dL (70-110)
[2023-03-14] MEDS ORDERED: ASPIRIN 325 MG TAB PO SCH (09:00)
[2023-03-14] MEDS ORDERED: ASPIRIN 81 MG PO SCH (09:00)
[2023-03-14] MEDS ORDERED: INSULIN DETEMIR (LEVEMIR) 100 UNIT/ML SYR SQ SCH (09:00)
[2023-03-14] MEDS ORDERED: LEVOTHYROXINE 137 MCG TAB PO SCH (09:00)
[2023-03-14] MEDS ORDERED: FINASTERIDE 5 MG TAB PO SCH (09:00)
[2023-03-14] MEDS ORDERED: PANTOPRAZOLE 40 MG TABLET PO SCH (09:00)
[2023-03-14] MEDS ORDERED: METOPROLOL SUCCINATE (ER) 50 MG TAB.ER.24H PO SCH (09:00)
[2023-03-14 09:06] LABS: HGB 11.4 gm/dL (13.0-17.5); Hypochromasia Moderate; MCH 25.9 pg (25.0-35.0); MCHC 31.5 g/dL (31.0-37.0); MCV 82.1 fL (80.0-100.0); Mean Platelet Volume 8.1; Platelet Count 248 k/uL (150-450); RBC 4.39 m/uL (4.30-5.90); RDW 15.8 % (11.5-15.5); WBC 8.8 k/uL (3.8-10.6)
[2023-03-14 09:19] LABS: African American GFR (CKD) >90 (>60 ml/min/1.73 sqM); Anion Gap 9 mmol/L; Blood Urea Nitrogen 15 mg/dL (9-20); Calcium 8.8 mg/dL (8.4-10.2); Carbon Dioxide 19 mmol/L (22-30); Chloride 111 mmol/L (98-107); Glucose 87 mg/dL (74-99); Non-African American GFR(CKD) >90 (>60 ml/min/1.73 sqM); Potassium 4.1 mmol/L (3.5-5.1); Sodium 139 mmol/L (137-145)
[2023-03-14] MEDS ORDERED: APIXABAN 5 MG TAB PO SCH (10:30)
--- NOTE | 2023-03-14 10:32 | P.PN ---
Subjective Progress Note Date: 03/14/23 67-year-old male with PMH of tracheal cancer following [facility], hypertension, KEITH, dyslipidemia, diabetes mellitus, glaucoma, hypothyroidism. He reports waking up at 4:30 AM with chest pain. Associated symptoms included diaphoresis, palpitations and shortness of breath. He checked his blood sugar which was 183. Pulse ox revealed a heart rate of 147. He drinks 2 cups of coffee daily. Denies smoking cigarettes, drinks 3 alcoholic beverages monthly. In the ED, he underwent extensive evaluation. Heart rate noted to be in the 150 and 160s. CBC WBC count 16.1, hemoglobin 11.5, hematocrit 36.2. Coagulation panel within normal limits. D-Dimer 0.87. CMP Cl 110, bicarb 21, glu 160. Troponin 0.017, 0.066. Mag 1.7. EKG A-Fib with RVR. CXR no acute process. At the time of interview, he was chest pain free. Patient is started on Cardizem and Heparin drip and admitted for further management. Restarted on home medication of Metoprolol. 03/14 Patient was seen and examined. He reports feeling well. No chest pain or SOB. Currently in sinus rhythm with HR of 73. Cardizem drip on hold. Anticoagulated with Heparin. Undergoing Echo. Repeat EKG shows sinus rhythm ventricular rate of 66. Troponin 0.07. TSH 2.81. CBC Hg 11.4 Hct 36. APTT 51.5. BMP Cl 111, bicarb 19. General: non toxic, no distress, appears at stated age Derm: warm, dry, trach site dressing c/d/i, midsternal surgical scar Head: atraumatic, normocephalic, symmetric Eyes: EOMI, no lid lag, anicteric sclera Mouth: no lip lesion, mucus membranes moist Cardiovascular: Normal S1 S2, no murmur Lungs: Clear to auscultation bilaterally, no rhonchi, no rales Ext: no gross muscle atrophy, no edema, no contractures Neuro: No focal neurologic deficits. Psych: Alert and oriented x 3. Based on my assessment of this patient, this patient meets a high complexity level of care. Patient has an acute diagnosis of A-Fib wtih RVR that poses a threat to life or bodily function. Atrial fibrillation with RVR: Cardizem drip on hold now in sinus. SEAN VASC score of 2 patient would benefit from AC. Heparin drip switched to Eliquis 5 mg PO BID. Telemetry monitoring. Maintain K > 4 and Mg > 2. Obtain Echo. TSH as above. Cardiology consult. Troponin elevation: Likely demand ischemia from A-Fib. Slow trend up. Repeat troponin tomorrow morning. Elevated D-Dimer: Age adjusted D-Dimer 670. Not hypoxic. Low probability for PE. Continue to monitor for need of CTA chest. Normocytic anemia: No signs of active bleeding. Resolved: Leukocytosis Chronic conditions: tracheal cancer, hypertension, KEITH, dyslipidemia, diabetes mellitus, glaucoma, hypothyroidism CODE STATUS: FULL CODE. DVT Prophylaxis: Eliquis. GI Prophylaxis: Designated medical POA if patient is not able to make medical decisions for themselves: Liset Bailey (sister). I have reviewed the following product consultant notes: I have reviewed the results of the following tests: CBC, BMP, TSH, Troponin. I have ordered the following tests: Pending: Echo. Troponin. I have discussed the care of this patient with the following independent historian: I have independently interpreted the following test below: EKG as above. I have discussed the management of this patient with the following physician: Objective - Vital Signs Vital signs: Vital Signs Temp 97.7 F 03/14/23 08:30 Pulse 75 03/14/23 08:30 Resp 17 03/14/23 08:30 BP 125/58 03/14/23 08:30 Pulse Ox 97 03/14/23 08:30 FiO2 Intake & Output 03/13/23 03/14/23 03/14/23 18:59 06:59 18:59 Intake Total 540.0 240 120 Output Total 0 Balance 540.0 240 120 Weight 88.451 kg 129.6 kg Intake: Intake, IV Titration 182.0 Amount Diltiazem 125 mg In 93.5 Sodium Chloride 0.9% 100 ml @ 5 MG/HR 5 mls/hr IV .Q24H [facility] Rx#:[id number] Heparin Sod,Pork in 0.45% 88.5 NaCl 25,000 unit In 0.45 % NaCl 1 250ml.bag @ 11. 306 UNITS/KG/HR 10 mls/hr IV .Q24H [facility] Rx#: [id number] Oral 358 240 120 Output: Urine 0 Other: Voiding Method Toilet Toilet # Voids 2 - Labs CBC & Chem 7: 03/14/23 07:04 03/14/23 07:04 Labs: Abnormal Lab Results - Last 24 Hours (Table) 03/13/23 03/13/23 03/13/23 Range/Units 08:55 11:42 16:47 Hgb (13.0-17.5) gm/dL Hct (39.0-53.0) % RDW (11.5-15.5) % APTT (22.0-30.0) sec Chloride (98-107) mmol/L Carbon Dioxide (22-30) mmol/L POC Glucose (mg/dL) 228 H (70-110) mg/dL Troponin I 0.066 H* 0.070 H* (0.000-0.034) ng/mL 03/13/23 03/13/23 03/14/23 Range/Units 17:42 23:48 07:04 Hgb (13.0-17.5) gm/dL Hct (39.0-53.0) % RDW (11.5-15.5) % APTT 33.1 H 55.3 H 51.5 H (22.0-30.0) sec Chloride (98-107) mmol/L Carbon Dioxide (22-30) mmol/L POC Glucose (mg/dL) (70-110) mg/dL Troponin I (0.000-0.034) ng/mL 03/14/23 03/14/23 03/14/23 Range/Units 07:04 07:04 08:34 Hgb 11.4 L (13.0-17.5) gm/dL Hct 36.0 L (39.0-53.0) % RDW 15.8 H (11.5-15.5) % APTT (22.0-30.0) sec Chloride 111 H (98-107) mmol/L Carbon Dioxide 19 L (22-30) mmol/L POC Glucose (mg/dL) 125 H (70-110) mg/dL Troponin I (0.000-0.034) ng/mL
[2023-03-14] MEDS: BENZONATATE 100 MG CAP PO PRN (11:15)
[2023-03-14 11:41] LABS: Glucose,Whole Blood 99 mg/dL (70-110)
--- NOTE | 2023-03-14 11:49 | CA ---
Transthoracic Echo Report Name: Arnulfo Talamantes Age: 67 Gender: M : 1955 Exam Date: 03/14/2023 10:38 Exam Location: [facility] Ht (in): 70 Wt (lb): 195 Ordering Physician: Gopal Fung PAC Attending/Referring Phys: [id number], Antonieta [employer] Program Director Seth Ortiz RDCS Procedure CPT: Indications: afib Cardiac Hx: Technical Quality: Technically difficult study Contrast 1: Definity Total Dose (mL): 2 Contrast 2: Total Dose (mL): MEASUREMENTS (Male / Female) Normal Values 2D ECHO LV Diastolic Diameter PLAX 4.7 cm 4.2 - 5.9 / 3.9 - 5.3 cm LV Systolic Diameter PLAX 3.1 cm IVS Diastolic Thickness 1.2 cm 0.6 - 1.0 / 0.6 - 0.9 cm LVPW Diastolic Thickness 1.3 cm 0.6 - 1.0 / 0.6 - 0.9 cm LV Relative Wall Thickness 0.5 RV Internal Dim ED PLAX 3.0 cm LVOT Diameter 2.0 cm Aortic Root Diameter 3.3 cm LA Systolic Diameter LX 2.5 cm 3.0 - 4.0 / 2.7 - 3.8 cm LV Diastolic Volume MOD 4C 78.9 cm??? LV Systolic Volume MOD 4C 36.5 cm??? LV Ejection Fraction MOD 4C 53.7 % LV Cardiac Index MOD 4C 1407.2 cm???/min???m??? LV Diastolic Length 4C 7.8 cm LV Systolic Length 4C 6.6 cm LA Volume 64.5 cm??? 18 - 58 / 22 - 52 cm??? LA Volume Index 30.6 cm???/m??? 16 - 28 cm???/m??? DOPPLER AV Peak Velocity 308.1 cm/s AV Peak Gradient 38.0 mmHg AV Mean Velocity 232.9 cm/s AV Mean Gradient 23.7 mmHg AV Velocity Time Integral 76.6 cm LVOT Peak Velocity 117.9 cm/s LVOT Peak Gradient 5.6 mmHg LVOT Velocity Time Integral 29.6 cm LVOT Stroke Volume 91.8 cm??? LVOT Stroke Volume Index 44.5 ml/m??? LVOT Cardiac Index 3048.8 cm???/min???m??? AV Area Cont Eq vti 1.2 cm??? AV Area Cont Eq pk 1.2 cm??? MV Peak Velocity 97.1 cm/s MV Peak Gradient 3.8 mmHg MV Mean Velocity 42.7 cm/s MV Mean Gradient 0.9 mmHg MV Velocity Time Integral 28.5 cm MR Peak Velocity 209.0 cm/s MR Peak Gradient 17.5 mmHg Mitral E Point Velocity 99.3 cm/s Mitral A Point Velocity 54.4 cm/s Mitral E to A Ratio 1.8 MV Deceleration Time 199.3 ms TR Peak Velocity 125.8 cm/s TR Peak Gradient 6.3 mmHg Right Ventricular Systolic Press 11.3 mmHg PV Peak Velocity 88.9 cm/s PV Peak Gradient 3.2 mmHg FINDINGS Left Ventricle Normal LV size. Mild concentric LVH. Left ventricular ejection fraction is estimated at 50-55 %. Right Ventricle Normal right ventricular size. Right Atrium Normal right atrial size. Left Atrium Mildly increased left atrial volume. LA volume index= 31ml/m2 Mitral Valve Structurally normal mitral valve. No mitral stenosis. Trace MR. Aortic Valve Severe AV calcification. AV peak gradient= 38mmHg. Mean gradient= 24mmHg. AV area by VTI= 1.2cm2 Tricuspid Valve Tricuspid valve not well visualized. Trace TR. Pulmonic Valve Pulmonic valve not well visualized. No pulmonic regurgitation. Pericardium Not well visulized. Aorta Normal size aortic root. CONCLUSIONS Technically difficult study Left ventricular ejection fraction is estimated at 50-55 %. Mildly increased left atrial volume. Severe AV calcification. AV peak gradient= 38mmHg. Mean gradient= 24mmHg. moderate stenosis Previewed by: Dr Flip Valdes (Electronically Signed) Final Date: 14 March 2023 11:49
[2023-03-14 13:04] VITALS: BP 146/88; PULSE 66; RESP 16; TEMP 97.8
[2023-03-14 13:22] LABS: LDL Cholesterol,Calculated 59.4 mg/dL (0.0-131.0)
[2023-03-14] MEDS: HEPARIN SOD,PORK IN 0.45% NACL 25,000 UNIT in 0.45% NACL 1 250ML.BAG IV SCH (13:22)
--- NOTE | 2023-03-14 14:32 | P.DS ---
Providers Date of admission: 03/13/23 08:40 Expected date of discharge: 03/14/23 Attending physician: Krunal Beltran MD Consults: 03/13/23 08:33 Consult Physician Urgent Consulting Provider: John Michel Consult Reason/Comments: afib rvr Do you want consulting provider notified?: Yes Primary care physician: [facility] Course: 67-year-old male with PMH of tracheal cancer following [facility], hypertension, KEITH, dyslipidemia, diabetes mellitus, glaucoma, hypothyroidism. He reports waking up at 4:30 AM with chest pain. Associated symptoms included diaphoresis, palpitations and shortness of breath. He checked his blood sugar which was 183. Pulse ox revealed a heart rate of 147. He drinks 2 cups of coffee daily. Denies smoking cigarettes, drinks 3 alcoholic beverages monthly. In the ED, he underwent extensive evaluation. Heart rate noted to be in the 150 and 160s. CBC WBC count 16.1, hemoglobin 11.5, hematocrit 36.2. Coagulation panel within normal limits. D-Dimer 0.87. CMP Cl 110, bicarb 21, glu 160. Troponin 0.017, 0.066. Mag 1.7. EKG A-Fib with RVR. CXR no acute process. At the time of interview, he was chest pain free. Patient is started on Cardizem and Heparin drip and admitted for further management. Restarted on home medication of Metoprolol. 03/14 Patient was seen and examined. He reports feeling well. No chest pain or SOB. Currently in sinus rhythm with HR of 73. Cardizem drip on hold. Anticoagulated with Heparin. Echo showed EF 50-55% with severe AV calcification. Repeat EKG shows sinus rhythm ventricular rate of 66. Troponin 0.07. TSH 2.81. CBC Hg 11.4 Hct 36. APTT 51.5. BMP Cl 111, bicarb 19. Cardiology consulted, recommended starting Eliquis and continuing Metoprolol. Cardiology cleared the patient for discharge per RN. General: non toxic, no distress, appears at stated age Derm: warm, dry, trach site dressing c/d/i, midsternal surgical scar Head: atraumatic, normocephalic, symmetric Eyes: EOMI, no lid lag, anicteric sclera Mouth: no lip lesion, mucus membranes moist Cardiovascular: Normal S1 S2, no murmur Lungs: Clear to auscultation bilaterally, no rhonchi, no rales Ext: no gross muscle atrophy, no edema, no contractures Neuro: No focal neurologic deficits. Psych: Alert and oriented x 3. Discharge Diagnosis: Atrial fibrillation with RVR Troponin elevation Elevated D-Dimer Normocytic anemia Resolved: Leukocytosis Chronic conditions: tracheal cancer, hypertension, KEITH, dyslipidemia, diabetes mellitus, glaucoma, hypothyroidism Patient Condition at Discharge: Stable Plan - Discharge Summary Discharge Rx Participant: No New Discharge Prescriptions: New Apixaban [Eliquis] 5 mg PO BID #60 tab Continue Atorvastatin [Lipitor] 40 mg PO HS Insulin Glargine,Hum.rec.anlog [Lantus Solostar Pen] 30 unit SQ DAILY Elderberry Fruit and Flower [Black Elderberry 575 mg Cap] 1 cap PO DAILY Metoprolol Succinate (ER) [Toprol XL] 50 mg PO DAILY Losartan Potassium [Cozaar] 100 mg PO HS Fluticasone/Umeclidin/Vilanter [Trelegy Ellipta 100-62.5-25] 1 puff INHALATION RT-DAILY Cholecalciferol [Vitamin D3 (25 Mcg = 1000 Iu)] 25 mcg PO DAILY Acetylcysteine 200mg/Ml (20%) Solution 2 ml INHALATION RT-BID Pantoprazole [Protonix] 40 mg PO DAILY Levothyroxine Sodium [Synthroid] 137 mcg PO DAILY Ascorbic Acid [Vitamin C] 1,000 mg PO DAILY Ipratropium-Albuterol Nebulize [Duoneb 0.5 mg-3 mg/3 ml Soln] 3 ml INHALATION RT-QID 30 Days #90 ml ondansetron HCL [Zofran] 8 mg PO Q8HR PRN PRN Reason: Nausea And Vomiting Benzonatate [Tessalon Perle] 200 mg PO Q8H PRN PRN Reason: Cough Amoxic-Pot Clav 400-57Mg/5Ml [Augmentin 400-57 mg/5 ml Susp] 11 ml PO Q12H Finasteride [Proscar] 5 mg PO DAILY Discharge Medication List Atorvastatin [Lipitor] 40 mg PO HS 09/14/13 [History] Ascorbic Acid [Vitamin C] 1,000 mg PO DAILY 03/09/21 [History] Elderberry Fruit and Flower [Black Elderberry 575 mg Cap] 1 cap PO DAILY 03/09/21 [History] Insulin Glargine,Hum.rec.anlog [Lantus Solostar Pen] 30 unit SQ DAILY 03/09/21 [History] Levothyroxine Sodium [Synthroid] 137 mcg PO DAILY 03/09/21 [History] Metoprolol Succinate (ER) [Toprol XL] 50 mg PO DAILY 03/09/21 [History] Ipratropium-Albuterol Nebulize [Duoneb 0.5 mg-3 mg/3 ml Soln] 3 ml INHALATION RT-QID 30 Days #90 ml 03/10/21 [Rx] Acetylcysteine 200mg/Ml (20%) Solution 2 ml INHALATION RT-BID 03/13/23 [History] Amoxic-Pot Clav 400-57Mg/5Ml [Augmentin 400-57 mg/5 ml Susp] 11 ml PO Q12H 03/13/23 [History] Benzonatate [Tessalon Perle] 200 mg PO Q8H PRN 03/13/23 [History] Cholecalciferol [Vitamin D3 (25 Mcg = 1000 Iu)] 25 mcg PO DAILY 03/13/23 [History] Finasteride [Proscar] 5 mg PO DAILY 03/13/23 [History] Fluticasone/Umeclidin/Vilanter [Trelegy Ellipta 100-62.5-25] 1 puff INHALATION RT-DAILY 03/13/23 [History] Losartan Potassium [Cozaar] 100 mg PO HS 03/13/23 [History] Pantoprazole [Protonix] 40 mg PO DAILY 03/13/23 [History] ondansetron HCL [Zofran] 8 mg PO Q8HR PRN 03/13/23 [History] Apixaban [Eliquis] 5 mg PO BID #60 tab 03/14/23 [Rx] Follow up Appointment(s)/Referral(s): Flip Valdes MD [Medical Doctor] - 1 Week Imtiaz Vasques DO [Primary Care Provider] - 1-2 days Discharge Disposition: HOME SELF-CARE
--- NOTE | 2023-03-14 16:34 | P.CRDCN ---
History of Present Illness Consult date: 03/14/23 History of present illness: HISTORY OF PRESENTING ILLNESS 67-year-old male who is known to Dr. Chew. He has a possible history of tracheal cancer status post graft repair at he knows to [facility]. 6 weeks ago he had a stent placed in his trachea because of tracheal malacia and difficulty breathing. He has history of hypertension, obstructive sleep apnea, dyslipidemia, type 2 diabetes, hypothyroidism He came to the hospital because of waking up from sleep with chest pressure-like sensation. On admission to the ER he was noticed to be in atrial fibrillation with rapid ventricular response. This is a new diagnosis for him. He was started on Cardizem drip and since then he has converted to normal sinus rhythm. His troponin was borderline elevated at 0.06 with a flat pattern. TSH was normal, creatinine 0.7 REVIEW OF SYSTEMS 14 point review of system is negative except what is mentioned above in HPI. PHYSICAL EXAMINATION Vital signs reviewed. Head: Normocephalic. Eyes: Sclerae nonicteric. Neck: Postsurgical changes noticed in the neck. Mildly delayed carotid pulse. Brisk upstroke Lungs: Clear to auscultation. Heart: Regular rate and rhythm, S1-S2, no S3, systolic murmur audible in aortic area with radiation. Abdomen: Soft nontender, positive bowel sounds no organomegaly. Extremities: No edema, intact distal pulses. Neuro: Alert, oritented, no focal deficits ASSESSMENT Paroxysmal atrial fibrillation, currently in sinus rhythm, symptomatic with chest pressure and palpitations Moderate to severe aortic stenosis, concern of paradoxical of lower lobe greater than state Tracheal cancer status post surgical repair 2020, decent tracheal stent 6 weeks ago for tracheomalacia and shortness of breath History of neck radiation in 2019 PLAN Start Eliquis 5 mg twice a day. Start metoprolol 50 mg Continue losartan Continue atorvastatin He will need an outpatient aortic valve calcium score test to evaluate for aortic stenosis He would benefit from a treadmill stress test to evaluate for his cardiac symptoms while he is exercising. Okay to be discharged from cardiac vessel standpoint with outpatient follow-up with Dr. Valdes to Dr. Chew well but patient prefers. Past Medical History Past Medical History: Cancer, GERD/Reflux, Hypertension, Sleep Apnea/CPAP/BIPAP Additional Past Medical History / Comment(s): edema-both feet, tracheal cancer, bronchial cancer History of Any Multi-Drug Resistant Organisms: None Reported Past Surgical History: Orthopedic Surgery Additional Past Surgical History / Comment(s): arthroscopic-dillon knees, rt shoulder repair, nasal/sinus surgery, trachial removal and insertion of a "t- tube" trach. left and right. hip stent in trachea Past Anesthesia/Blood Transfusion Reactions: No Reported Reaction Past Psychological History: No Psychological Hx Reported Smoking Status: Former smoker Past Alcohol Use History: Occasional Past Drug Use History: None Reported - Past Family History Sister(s) Family Medical History: Cancer Medications and Allergies Home Medications Medication Instructions Recorded Confirmed Type Atorvastatin [Lipitor] 40 mg PO HS 09/14/13 03/13/23 History Ascorbic Acid [Vitamin C] 1,000 mg PO DAILY 03/09/21 03/13/23 History Elderberry Fruit and Flower [Black 1 cap PO DAILY 03/09/21 03/13/23 History Elderberry 575 mg Cap] Insulin Glargine,Hum.rec.anlog 30 unit SQ DAILY 03/09/21 03/13/23 History [Lantus Solostar Pen] Levothyroxine Sodium [Synthroid] 137 mcg PO DAILY 03/09/21 03/13/23 History Metoprolol Succinate (ER) [Toprol 50 mg PO DAILY 03/09/21 03/13/23 History XL] Ipratropium-Albuterol Nebulize 3 ml INHALATION RT-QID 30 Days #90 03/10/21 03/13/23 Rx [Duoneb 0.5 mg-3 mg/3 ml Soln] ml Acetylcysteine 200mg/Ml (20%) 2 ml INHALATION RT-BID 03/13/23 03/13/23 History Solution Amoxic-Pot Clav 400-57Mg/5Ml 11 ml PO Q12H 03/13/23 03/13/23 History [Augmentin 400-57 mg/5 ml Susp] Benzonatate [Tessalon Perle] 200 mg PO Q8H PRN 03/13/23 03/13/23 History Cholecalciferol [Vitamin D3 (25 25 mcg PO DAILY 03/13/23 03/13/23 History Mcg = 1000 Iu)] Finasteride [Proscar] 5 mg PO DAILY 03/13/23 03/13/23 History Fluticasone/Umeclidin/Vilanter 1 puff INHALATION RT-DAILY 03/13/23 03/13/23 History [Trelegy Ellipta 100-62.5-25] Losartan Potassium [Cozaar] 100 mg PO HS 03/13/23 03/13/23 History Pantoprazole [Protonix] 40 mg PO DAILY 03/13/23 03/13/23 History ondansetron HCL [Zofran] 8 mg PO Q8HR PRN 03/13/23 03/13/23 History Apixaban [Eliquis] 5 mg PO BID #60 tab 03/14/23 Rx Allergies Allergy/AdvReac Type Severity Reaction Status Date / Time No Known Allergies Allergy Verified 03/13/23 12:16 Physical Exam Vitals: Vital Signs Temp Pulse Pulse Resp BP Pulse Ox 03/14/23 12:10 75 03/14/23 12:00 97.8 F 66 16 146/88 96 03/14/23 11:55 74 03/14/23 08:30 97.7 F 75 17 125/58 97 03/14/23 08:18 76 03/14/23 08:08 75 03/14/23 04:31 98.3 F 61 16 118/71 97 03/14/23 02:00 71 03/14/23 00:43 71 17 125/69 99 03/13/23 21:30 76 03/13/23 21:06 64 03/13/23 20:00 98.2 F 68 17 123/65 98 Intake and Output 03/14/23 03/14/23 03/14/23 06:59 14:59 22:59 Intake Total 401.5 Balance 401.5 Intake: Intake, IV Titration 161.5 Amount Heparin Sod,Pork in 0.45% 161.5 NaCl 25,000 unit In 0.45 % NaCl 1 250ml.bag @ 11. 306 UNITS/KG/HR 10 mls/hr IV .Q24H [facility] Rx#: [id number] Oral 240 Other: Voiding Method Toilet Toilet # Voids 2 Weight 129.6 kg Results 03/14/23 07:04 03/14/23 07:04 Coagulation 03/13/23 03/13/23 03/14/23 Range/Units 17:42 23:48 07:04 APTT 33.1 H 55.3 H 51.5 H (22.0-30.0) sec Lipids 03/14/23 Range/Units 07:04 Triglycerides 73.00 (0.00-149.00) mg/dL Cholesterol 113.00 (0.00-200.00) mg/dL HDL Cholesterol 39.00 L (40.00-60.00) mg/dL Cholesterol/HDL Ratio 2.90 Ratio CBC 03/14/23 Range/Units 07:04 WBC 8.8 (3.8-10.6) k/uL RBC 4.39 (4.30-5.90) m/uL Hgb 11.4 L (13.0-17.5) gm/dL Hct 36.0 L (39.0-53.0) % Plt Count 248 (150-450) k/uL Comprehensive Metabolic Panel 03/14/23 Range/Units 07:04 Sodium 139 (137-145) mmol/L Potassium 4.1 (3.5-5.1) mmol/L Chloride 111 H (98-107) mmol/L Carbon Dioxide 19 L (22-30) mmol/L BUN 15 (9-20) mg/dL Creatinine 0.74 (0.66-1.25) mg/dL Glucose 87 (74-99) mg/dL Calcium 8.8 (8.4-10.2) mg/dL Intake and Output 03/14/23 03/14/23 03/14/23 06:59 14:59 22:59 Intake Total 401.5 Balance 401.5 Intake: Intake, IV Titration 161.5 Amount Heparin Sod,Pork in 0.45% 161.5 NaCl 25,000 unit In 0.45 % NaCl 1 250ml.bag @ 11. 306 UNITS/KG/HR 10 mls/hr IV .Q24H [facility] Rx#: [id number] Oral 240 Other: Voiding Method Toilet Toilet # Voids 2 Weight 129.6 kg 03/14/23 07:04 03/14/23 07:04
== END 2023-03-14 14:45 | disposition home or self-care (01) | DRG 309 ==
LOC: EC 06:27 → 3SCARD 08:40
PROVIDERS: ADMIT Family Medicine; ATTEND Family Medicine
DX: I48.0 Paroxysmal atrial fibrillation (principal); C33 Malignant neoplasm of trachea; Z79.01 Long term (current) use of anticoagulants; E03.9 Hypothyroidism, unspecified; E78.5 Hyperlipidemia, unspecified; G47.33 Obstructive sleep apnea (adult) (pediatric); E11.9 Type 2 diabetes mellitus without complications; H40.9 Unspecified glaucoma; I10 Essential (primary) hypertension; I35.0 Nonrheumatic aortic (valve) stenosis; K21.9 Gastro-esophageal reflux disease without esophagitis; Z79.51 Long term (current) use of inhaled steroids; Z79.890 Hormone replacement therapy; Z79.899 Other long term (current) drug therapy; Z92.3 Personal history of irradiation; Z28.311 Partially vaccinated for COVID-19; R79.1 Abnormal coagulation profile; R79.89 Other specified abnormal findings of blood chemistry; Z87.891 Personal history of nicotine dependence
CPT/HCPCS: 36415; 71046; 80048; 80053; 80061; 83735; 84443; 84484; 85025; 85027; 85379; 85610; 85730; 93005; 93306; 96365; 96367; 96375; 99291

== ENCOUNTER → 2024-03-23 | Outpatient (CLI) | payer MEDICARE ==
--- NOTE | 2024-03-25 13:14 | PE ---
EXAMINATION TYPE: PET CT fusion skull to thigh DATE OF EXAM: 03/23/2024 CLINICAL INDICATION:Male, 68 years old with history of C76.0 HEAD AND NECK; TECHNIQUE: Following the intravenous administration of 9.8 mCi of F-18 FDG, whole body images are p erformed from the skull base to the Mid thigh. Images are reviewed on the computer in the coronal, a xial, and sagittal planes. Reconstructed rotating images are created on independent workstation and reviewed on the computer. A non-contrast CT is performed in conjunction with the PET scan. Glucose level 100 mg/dL CT DLP: L3 955 mGycm, Automated exposure control for dose reduction was used. COMPARISON: CT 2021, PET/CT None, MRI: None FINDINGS: Mediastinal SUV mean is 2.9. Hepatic parenchyma SUV mean is 2.2. SKULL BASE AND NECK: No suspicious radiotracer activity. CHEST, MEDIASTINUM, AND HILAR REGION: * FDG uptake within the bilateral posterior lungs inferiorly airspace consolidation in the right bryanna g base max SUV 6.1 and the left lung base max in the 10.8. * Airway stent noted in the trachea extends into the proximal bilateral main bronchi. There is inten se tracer uptake along this device. Next 12.4. * Multiple pulmonary nodules are seen scattered throughout the lungs largest in the left lower lobe superior segment measuring 14 mm Max SUV 9.1. Right lower lobe/perihilar uptake max SUV 7.5. There is at least 5 nodules in the left lower lobe and 3 nodules in the right lung. There is at least one nod ule in the left upper lung. ABDOMEN AND PELVIS: No suspicious radiotracer activity. MUSCULOSKELETAL STRUCTURES: T10 and T11 vertebral body activity max SUV 5.2 and T10 and 5.[address]: Atherosclerosis of the carotid bifurcations. Stent graft noted within the trachea with post surgical changes to the upper/lower neck. Sternotomy wires are present. Cholelithiasis. Scattered colonic diverticula. Hip arthroplasties appear intact. IMPRESSION: * Large airway stent grafts in the trachea and bilateral main bronchi with intense uptake possibly r eactive to this stent. Given reported history of head and neck cancer, if this is the primary cancer then this is FDG avid and suggests malignancy. Additionally there is multiple pulmonary nodules federico rning for metastatic disease throughout the lungs. * Bilateral lower lobe posterior lateral airspace opacities concerning for acute infection. Short-te rm follow-up CT chest without contrast recommended to ensure resolution * More focal uptake within T10 and T11 vertebral bodies possibly on the basis of metastatic disease versus degeneration.. Attention on follow-up imaging. [facility], , 03/25/2024 1:11 PM
== END | disposition home or self-care (01) ==
LOC: RADPETMAIN 15:21
PROVIDERS: ATTEND Internal Medicine Hematology & Oncology
DX: C76.0 Malignant neoplasm of head, face and neck (principal); R91.8 Other nonspecific abnormal finding of lung field; K57.30 Diverticulosis of large intestine without perforation or abscess without bleeding; K80.20 Calculus of gallbladder without cholecystitis without obstruction
CPT/HCPCS: 78815; A9552

== ENCOUNTER → 2024-06-16 | Outpatient (CLI) | payer MEDICARE | END | disposition home or self-care (01) | LOC: RADPETMAIN 14:57 | PROVIDERS: ATTEND Internal Medicine Hematology & Oncology | DX: Z53.9 Procedure and treatment not carried out, unspecified reason (principal) ==

== ENCOUNTER → 2024-06-29 | Outpatient (CLI) | payer MEDICARE ==
--- NOTE | 2024-06-30 08:23 | PE ---
EXAMINATION TYPE: PET CT fusion skull to thigh DATE OF EXAM: 06/29/2024 COMPARISON: Prior PET/CT March 23, 2024 HISTORY: Head and neck/throat cancer progress study . History of radiation and immunotherapy TECHNIQUE: Following the intravenous administration of 13.48 mCi of F-18 FDG, whole body images are performed from the skull base to the midthigh. Images are reviewed on the computer in the coronal, a xial, and sagittal planes. Reconstructed rotating images are created on independent workstation and reviewed on the computer. A localization and attenuation correction CT is performed in conjunction with the PET scan. BGL = 130. SCAN: Subsequent Scan FINDINGS: HEAD AND NECK: No new area of suspicious abnormal hypermetabolic uptake at or above the level of the hyoid bone CHEST, MEDIASTINUM, AND HILAR REGION: Persistent surgical change in level of the thoracic inlet with metallic stent in the trachea extending to the proximal bronchi. Persistent increased radiotracer upt deshawn along the stent , max SUV is 8.26 versus 12.4 on prior. Increasing soft tissue fullness and hype rmetabolic uptake along the left proximal bronchus is seen, max SUV is 9.15 versus prior 12.44. Multiple bilateral pulmonary nodules are redemonstrated. For reference there is 1.8 x 1.6 cm left low er lobe pulmonary nodule axial image 100 which is increased in size from 1.4 x 1.3 cm, max SUV is 6.3 1 versus 9.09 on prior. There is enlarging right infrahilar linear 1.0 cm lymph node axial image 108 with increasing hypermetabolic uptake, max SUV is 9.04 versus 7.46 on prior. Persistent posterior le ft basilar hypermetabolic mass measuring 4.5 x 2.2 cm axial image 116 similar to prior with max SUV o f 9.85 versus prior 10.84. ABDOMEN AND PELVIS: No new areas of abnormal hypermetabolic uptake. OSSEOUS STRUCTURES: No new areas of abnormal hypermetabolic uptake. OTHER CT: Surgical changes in the left neck is redemonstrated. Overlying sternal wires are redemonstr ated. Persistent moderate to severe three-vessel coronary artery calcification. Dependent small galls tones are redemonstrated. Distal colonic diverticulosis redemonstrated. Metallic artifact from bilate ral hip arthroplasty is again seen. IMPRESSION: Overall mixed response. Majority lesion show improving max SUV. There is however an enlar ging right infrahilar nodule with increasing hypermetabolic uptake noted. [facility], , 06/30/2024 8:21 AM
== END | disposition home or self-care (01) ==
LOC: RADPETMAIN 06:47
PROVIDERS: ATTEND Internal Medicine Hematology & Oncology
DX: C76.0 Malignant neoplasm of head, face and neck (principal)
CPT/HCPCS: 78815; A9552

== ENCOUNTER 2024-09-15 08:19 | Day surgery (SDC) | payer MEDICARE ==
[2024-09-12 16:21] VITALS: BMI 30.1
[~2024-09-15 08:19] MED LIST: ALPRAZolam 0.25 MG TAB PO PRN; ALPRAZolam 0.5 MG TAB PO PRN; NITROGLYCERIN SL TABS 0.4 MG TAB SUBLINGUAL PRN
[2024-09-15 08:50] LABS: Glucose,Whole Blood 140 mg/dL (70-110)
[2024-09-15] MEDS: IV FLUID CONTINUATION 1,000 ML IV ONE ×2 (09:00→11:59)
[2024-09-15] MEDS: SODIUM CHLORIDE 0.9% 1,000 ML in EMPTY BAG 1 BAG IV SCH (09:01)
[2024-09-15] MEDS: ASPIRIN 325 MG TAB PO STA (09:31)
[2024-09-15] MEDS: BENZOCAINE SPRAY 1 EACH MM ONE (11:05)
[2024-09-15] MEDS: fentaNYL (PF) 50 MCG/1 ML VIAL IVP ONE ×2 (11:11→12:29)
[2024-09-15] MEDS: MIDAZOLAM 2 MG/2 ML VIAL IVP ONE (11:11)
[2024-09-15] MEDS: LIDOCAINE 1% INJ 10MG/ML (20 ML MDV) SQ ONE (11:43)
[2024-09-15] MEDS: VERAPAMIL 2.5 MG/ML 2 ML AMP INTRAARTER ONE ×2 (11:44→12:07)
[2024-09-15] MEDS: HEPARIN SODIUM,PORCINE 10,000 UNIT in SODIUM CHLORIDE 0.9% 1,000 ML IRRIGATION PRN (12:00)
[2024-09-15] MEDS: HEPARIN SODIUM,PORCINE (1 ML) 2,500 UNIT in SODIUM CHLORIDE 0.9% 250 ML IRRIGATION PRN (12:00)
[2024-09-15] MEDS: HEPARIN SODIUM 1,000 UN/ML (10ML VL) IVP ONE (12:08)
[2024-09-15 12:26] LABS: O2 Sat Blood Gas 99.2 %
[2024-09-15 12:27] LABS: O2 Sat Blood Gas 74.4 %
[2024-09-15 12:29] LABS: O2 Sat Blood Gas 73.3 %
[2024-09-15 12:30] LABS: O2 Sat Blood Gas 72.6 %
[2024-09-15] MEDS: IOPAMIDOL-370 100ML BTL INJ ONE (12:34)
[2024-09-15 14:04] VITALS: RESP 18
[2024-09-15 16:27] VITALS: BP 110/73; PULSE 73
== END 2024-09-15 15:50 | disposition home or self-care (01) ==
LOC: CATHCVL 08:19
PROVIDERS: ATTEND Student in an Organized Health Care Education/Training Program
DX: I35.2 Nonrheumatic aortic (valve) stenosis with insufficiency (principal); I48.0 Paroxysmal atrial fibrillation; I10 Essential (primary) hypertension; E78.5 Hyperlipidemia, unspecified; J44.9 Chronic obstructive pulmonary disease, unspecified; J39.8 Other specified diseases of upper respiratory tract; Z79.82 Long term (current) use of aspirin; Z79.4 Long term (current) use of insulin; Z79.890 Hormone replacement therapy; Z79.899 Other long term (current) drug therapy; Z87.891 Personal history of nicotine dependence; Z85.118 Personal history of other malignant neoplasm of bronchus and lung; Z82.49 Family history of ischemic heart disease and other diseases of the circulatory system
CPT/HCPCS: 93312; 93320; 93325; 93460; 85018; 82810; C1769 ×2; C1894; C1751; J2250; J1644 ×3; J2003; Q9967; J3010